=== PATIENT | female | born 1950 | race Caucasian/White ===

== ENCOUNTER → 2016-10-24 | Outpatient (CLI) | payer BC ==
[~2016-10-24] MED LIST: ASPI-231 PO; CLON0.1T PO; LISIPOW PO; METO-169 PO; SPIR25TA89 PO; SYNTHROID PO
[2016-10-24 08:03] LABS: Basophils # (auto) 0.1 uL; Basophils % (auto) 0.8 % (0.0-2.0); Eosinophils # (auto) 0.2 uL; Eosinophils % (auto) 2.9 % (0.0-7.0); Hematocrit 39.5 % (36.0-46.0); Lymphocytes # (auto) 1.4 uL; Lymphocytes % (auto) 19.8 % (10.0-50.0); Mean Corpuscular Hemoglobin 27.3 pg (28.0-32.0); Mean Corpuscular Hgb Conc. 32.9 g/dL (32.0-36.0); Mean Platelet Volume 8.3 fL (7.4-10.4); Monocytes # (auto) 0.5 uL; Monocytes % (auto) 7.3 % (0.0-12.0); Neutrophils # (auto) 4.7 uL; Neutrophils % (auto) 69.2 % (37.0-80.0); Platelet Count (auto) 263 10^3/uL (140-450); Red Cell Distribution Width 14.9 % (11.6-16.0); White Blood Cell 6.9 10^3/uL (4.4-10.8)
== END | disposition home or self-care (01) ==
LOC: LAB 07:12
PROVIDERS: ATTEND Internal Medicine
DX: C54.1 Malignant neoplasm of endometrium (principal)
CPT/HCPCS: 36415; 82378; 85025; 86304

== ENCOUNTER → 2016-11-22 | Outpatient (CLI) | payer BC ==
[2016-11-22 09:11] LABS: Basophils # (auto) 0 uL; Basophils % (auto) 0.6 % (0.0-2.0); DEFINITIVE VIEW TRANSMISSION; Eosinophils # (auto) 0.1 uL; Eosinophils % (auto) 2.1 % (0.0-7.0); Hematocrit 38.6 % (36.0-46.0); Hemoglobin 12.2 g/dL (12.2-16.2); Lymphocytes # (auto) 0.9 uL; Lymphocytes % (auto) 18.5 % (10.0-50.0); Mean Corpuscular Hemoglobin 26.9 pg (28.0-32.0); Mean Corpuscular Hgb Conc. 31.7 g/dL (32.0-36.0); Mean Platelet Volume 8.6 fL (7.4-10.4); Monocytes # (auto) 0.3 uL; Monocytes % (auto) 6.3 % (0.0-12.0); Neutrophils # (auto) 3.3 uL; Neutrophils % (auto) 72.5 % (37.0-80.0); Platelet Count (auto) 253 10^3/uL (140-450); Red Cell Distribution Width 16.3 % (11.6-16.0); White Blood Cell 4.6 10^3/uL (4.4-10.8)
[2016-11-22 14:11] LABS: Albumin 3.8 g/dL (3.4-5.0); Potassium 3.6 mmol/L (3.5-5.1)
[2016-11-22 14:15] LABS: BUN/Creatinine Ratio 29.3; Bilirubin, Total 0.6 mg/dL (0.2-1.0); Calcium 9.6 mg/dL (8.5-10.1); Magnesium 1.8 mg/dL (1.6-2.6); Total Protein 7.1 g/dL (6.4-8.2)
== END | disposition home or self-care (01) ==
LOC: LAB 07:21
PROVIDERS: ATTEND Internal Medicine
DX: Z51.11 Encounter for antineoplastic chemotherapy (principal); C54.1 Malignant neoplasm of endometrium
CPT/HCPCS: 36415; 80053; 83735; 85025

== ENCOUNTER → 2016-11-30 | Outpatient (CLI) | payer BC ==
[2016-11-30 08:31] LABS: Basophils # (auto) 0 uL; Basophils % (auto) 0.3 % (0.0-2.0); Eosinophils # (auto) 0.1 uL; Eosinophils % (auto) 3.1 % (0.0-7.0); Hematocrit 38.3 % (36.0-46.0); Hemoglobin 12.2 g/dL (12.2-16.2); Lymphocytes # (auto) 0.4 uL; Lymphocytes % (auto) 9.2 % (10.0-50.0); Mean Corpuscular Hemoglobin 27.5 pg (28.0-32.0); Mean Platelet Volume 8.1 fL (7.4-10.4); Monocytes # (auto) 0.3 uL; Monocytes % (auto) 6.9 % (0.0-12.0); Neutrophils # (auto) 3.8 uL; Neutrophils % (auto) 80.5 % (37.0-80.0); Platelet Count (auto) 207 10^3/uL (140-450); White Blood Cell 4.8 10^3/uL (4.4-10.8)
[2016-11-30 08:57] LABS: Albumin 3.4 g/dL (3.4-5.0); BUN/Creatinine Ratio 21.2; Bilirubin, Total 0.7 mg/dL (0.2-1.0); Calcium 9.2 mg/dL (8.5-10.1); Magnesium 1.7 mg/dL (1.6-2.6); Potassium 4.2 mmol/L (3.5-5.1); Total Protein 6.9 g/dL (6.4-8.2)
== END | disposition home or self-care (01) ==
LOC: LAB 08:17
PROVIDERS: ATTEND Internal Medicine
DX: C54.1 Malignant neoplasm of endometrium (principal); Z51.11 Encounter for antineoplastic chemotherapy
CPT/HCPCS: 36415; 80053; 83735; 85025

== ENCOUNTER → 2016-12-06 | Outpatient (CLI) | payer BC ==
[2016-12-06 08:29] LABS: Basophils # (auto) 0 uL; Eosinophils # (auto) 0.2 uL; Eosinophils % (auto) 5.5 % (0.0-7.0); Hematocrit 35.1 % (36.0-46.0); Hemoglobin 11.2 g/dL (12.2-16.2); Lymphocytes # (auto) 0.4 uL; Lymphocytes % (auto) 12.3 % (10.0-50.0); Mean Corpuscular Hemoglobin 27.6 pg (28.0-32.0); Mean Corpuscular Hgb Conc. 31.9 g/dL (32.0-36.0); Mean Corpuscular Volume 86.4 fL (80.0-100.0); Mean Platelet Volume 8.1 fL (7.4-10.4); Monocytes # (auto) 0.4 uL; Monocytes % (auto) 11.6 % (0.0-12.0); Neutrophils # (auto) 2.3 uL; Neutrophils % (auto) 69.6 % (37.0-80.0); Platelet Count (auto) 172 10^3/uL (140-450); Red Cell Distribution Width 15.9 % (11.6-16.0); White Blood Cell 3.3 10^3/uL (4.4-10.8)
[2016-12-06 09:05] LABS: Albumin 3.3 g/dL (3.4-5.0); BUN/Creatinine Ratio 33.9; Bilirubin, Total 0.4 mg/dL (0.2-1.0); Calcium 8.9 mg/dL (8.5-10.1); Magnesium 1.6 mg/dL (1.6-2.6); Total Protein 6.6 g/dL (6.4-8.2)
== END | disposition home or self-care (01) ==
LOC: LAB 08:13
PROVIDERS: ATTEND Internal Medicine
DX: Z51.11 Encounter for antineoplastic chemotherapy (principal); C54.1 Malignant neoplasm of endometrium
CPT/HCPCS: 36415; 80053; 83615; 83735; 85025

== ENCOUNTER → 2016-12-13 | Outpatient (CLI) | payer BC ==
[2016-12-13 16:00] LABS: Basophils # (auto) 0 uL; Basophils % (auto) 0.6 % (0.0-2.0); Eosinophils # (auto) 0.1 uL; Eosinophils % (auto) 2.2 % (0.0-7.0); Hematocrit 34.1 % (36.0-46.0); Hemoglobin 11.7 g/dL (12.2-16.2); Lymphocytes # (auto) 0.4 uL; Lymphocytes % (auto) 9.9 % (10.0-50.0); Mean Corpuscular Hemoglobin 28.8 pg (28.0-32.0); Mean Corpuscular Hgb Conc. 34.3 g/dL (32.0-36.0); Mean Corpuscular Volume 83.8 fL (80.0-100.0); Mean Platelet Volume 7.1 fL (7.4-10.4); Monocytes # (auto) 0.5 uL; Monocytes % (auto) 12.6 % (0.0-12.0); Neutrophils # (auto) 2.9 uL; Neutrophils % (auto) 74.7 % (37.0-80.0); Platelet Count (auto) 192 10^3/uL (140-450); Red Cell Distribution Width 15.7 % (11.6-16.0); White Blood Cell 3.8 10^3/uL (4.4-10.8)
[2016-12-13 16:24] LABS: Albumin 3.3 g/dL (3.4-5.0); BUN/Creatinine Ratio 26.1; Bilirubin, Total 0.5 mg/dL (0.2-1.0); Calcium 8.9 mg/dL (8.5-10.1); Magnesium 1.6 mg/dL (1.6-2.6); Potassium 4.5 mmol/L (3.5-5.1); Total Protein 6.8 g/dL (6.4-8.2)
== END | disposition home or self-care (01) ==
LOC: LAB 15:40
PROVIDERS: ATTEND Internal Medicine
DX: C54.1 Malignant neoplasm of endometrium (principal); Z51.11 Encounter for antineoplastic chemotherapy
CPT/HCPCS: 36415; 80053; 83615; 83735; 85025

== ENCOUNTER → 2016-12-21 | Outpatient (CLI) | payer BC ==
[2016-12-21 08:52] LABS: Basophils # (auto) 0 uL; Basophils % (auto) 0.1 % (0.0-2.0); Eosinophils # (auto) 0.1 uL; Hematocrit 33.1 % (36.0-46.0); Hemoglobin 11.5 g/dL (12.2-16.2); Lymphocytes # (auto) 0.2 uL; Lymphocytes % (auto) 5.7 % (10.0-50.0); Mean Corpuscular Hgb Conc. 34.7 g/dL (32.0-36.0); Mean Corpuscular Volume 83.6 fL (80.0-100.0); Mean Platelet Volume 7.6 fL (7.4-10.4); Monocytes # (auto) 0.3 uL; Neutrophils # (auto) 2.2 uL; Neutrophils % (auto) 80.2 % (37.0-80.0); Platelet Count (auto) 162 10^3/uL (140-450); Red Cell Distribution Width 16.5 % (11.6-16.0); White Blood Cell 2.7 10^3/uL (4.4-10.8)
[2016-12-21 09:18] LABS: Albumin 3.2 g/dL (3.4-5.0); Bilirubin, Total 0.6 mg/dL (0.2-1.0); Calcium 9.3 mg/dL (8.5-10.1); Magnesium 1.5 mg/dL (1.6-2.6); Potassium 4.3 mmol/L (3.5-5.1)
== END | disposition home or self-care (01) ==
LOC: LAB 08:23
PROVIDERS: ATTEND Internal Medicine
DX: C54.1 Malignant neoplasm of endometrium (principal); Z51.11 Encounter for antineoplastic chemotherapy
CPT/HCPCS: 36415; 80053; 83615; 83735; 85025

== ENCOUNTER → 2017-01-25 | Outpatient (CLI) | payer BC ==
[2017-01-25 08:31] LABS: Basophils # (auto) 0 uL; Basophils % (auto) 0.3 % (0.0-2.0); DEFINITIVE VIEW TRANSMISSION; Eosinophils # (auto) 0.2 uL; Eosinophils % (auto) 4.4 % (0.0-7.0); Hematocrit 27.4 % (36.0-46.0); Hemoglobin 9.4 g/dL (12.2-16.2); Lymphocytes # (auto) 0.3 uL; Lymphocytes % (auto) 6.3 % (10.0-50.0); Mean Corpuscular Hemoglobin 30.8 pg (28.0-32.0); Mean Corpuscular Hgb Conc. 34.1 g/dL (32.0-36.0); Mean Corpuscular Volume 90.4 fL (80.0-100.0); Mean Platelet Volume 8.7 fL (7.4-10.4); Monocytes # (auto) 0.4 uL; Monocytes % (auto) 9.6 % (0.0-12.0); Neutrophils # (auto) 3.5 uL; Neutrophils % (auto) 79.4 % (37.0-80.0); Platelet Count (auto) 181 10^3/uL (140-450); Red Cell Distribution Width 23.8 % (11.6-16.0); SUSPECT VIEW TRANSMISSION; White Blood Cell 4.4 10^3/uL (4.4-10.8)
[2017-01-25 08:52] LABS: Albumin 3.2 g/dL (3.4-5.0); BUN/Creatinine Ratio 23.9; Bilirubin, Total 0.4 mg/dL (0.2-1.0); Calcium 9.2 mg/dL (8.5-10.1); Potassium 4.1 mmol/L (3.5-5.1); Total Protein 6.7 g/dL (6.4-8.2)
== END | disposition home or self-care (01) ==
LOC: LAB 08:17
PROVIDERS: ATTEND Internal Medicine
DX: C54.1 Malignant neoplasm of endometrium (principal)
CPT/HCPCS: 36415; 80053; 83615; 85025; 86304

== ENCOUNTER → 2017-02-08 | Outpatient (CLI) | payer BC ==
[2017-02-08 15:19] LABS: Albumin 3.4 g/dL (3.4-5.0); BUN/Creatinine Ratio 22.8; Bilirubin, Total 0.7 mg/dL (0.2-1.0); Calcium 9.7 mg/dL (8.5-10.1); Potassium 4.5 mmol/L (3.5-5.1); Total Protein 7.1 g/dL (6.4-8.2)
[2017-02-08 15:30] LABS: DEFINITIVE VIEW TRANSMISSION; Hematocrit 29.7 % (36.0-46.0); Hemoglobin 10.2 g/dL (12.2-16.2); Mean Corpuscular Hgb Conc. 34.3 g/dL (32.0-36.0); Mean Corpuscular Volume 93.4 fL (80.0-100.0); Mean Platelet Volume 7.4 fL (7.4-10.4); Platelet Count (auto) 260 10^3/uL (140-450); Red Cell Distribution Width 23.4 % (11.6-16.0); SUSPECT VIEW TRANSMISSION
[2017-02-08 15:31] LABS: Metamyelocytes % 0; Promyelocytes % 0; Reactive Lymphocytes 0
[2017-02-08 18:43] LABS: Anisocytosis Moderate; Myelocytes % 0; Platelet Estimate Adequate
== END | disposition home or self-care (01) ==
LOC: LAB 14:47
PROVIDERS: ATTEND Internal Medicine
DX: Z51.11 Encounter for antineoplastic chemotherapy (principal); C54.1 Malignant neoplasm of endometrium
CPT/HCPCS: 36415; 80053; 83615; 83735; 85007; 85027

== ENCOUNTER → 2017-03-07 | Outpatient (CLI) | payer BC ==
[2017-03-07 07:42] LABS: Basophils # (auto) 0 uL; Basophils % (auto) 0.4 % (0.0-2.0); Eosinophils # (auto) 0 uL; Eosinophils % (auto) 1.2 % (0.0-7.0); Hematocrit 25.2 % (36.0-46.0); Hemoglobin 8.7 g/dL (12.2-16.2); Lymphocytes # (auto) 0.3 uL; Lymphocytes % (auto) 8.7 % (10.0-50.0); Mean Corpuscular Hgb Conc. 34.5 g/dL (32.0-36.0); Mean Corpuscular Volume 98.6 fL (80.0-100.0); Mean Platelet Volume 6.6 fL (7.4-10.4); Monocytes # (auto) 0.5 uL; Monocytes % (auto) 15.4 % (0.0-12.0); Neutrophils # (auto) 2.2 uL; Neutrophils % (auto) 74.3 % (37.0-80.0); Platelet Count (auto) 164 10^3/uL (140-450); Red Cell Distribution Width 18.2 % (11.6-16.0)
[2017-03-07 08:18] LABS: Albumin 3.5 g/dL (3.4-5.0); BUN/Creatinine Ratio 23.9; Bilirubin, Total 0.5 mg/dL (0.2-1.0); Calcium 9.3 mg/dL (8.5-10.1); Potassium 4.1 mmol/L (3.5-5.1)
== END | disposition home or self-care (01) ==
LOC: LAB 07:27
PROVIDERS: ATTEND Internal Medicine
DX: C54.1 Malignant neoplasm of endometrium (principal)
CPT/HCPCS: 36415; 80053; 83615; 85025

== ENCOUNTER → 2017-03-26 | Outpatient (CLI) | payer BC ==
[2017-03-26 11:38] LABS: Basophils # (auto) 0 uL; Basophils % (auto) 0.7 % (0.0-2.0); DEFINITIVE VIEW TRANSMISSION; Eosinophils # (auto) 0 uL; Eosinophils % (auto) 0.7 % (0.0-7.0); Hematocrit 26.9 % (36.0-46.0); Lymphocytes # (auto) 0.3 uL; Lymphocytes % (auto) 8.4 % (10.0-50.0); Mean Corpuscular Hemoglobin 34.4 pg (28.0-32.0); Mean Corpuscular Hgb Conc. 33.6 g/dL (32.0-36.0); Mean Corpuscular Volume 102.4 fL (80.0-100.0); Mean Platelet Volume 7.4 fL (7.4-10.4); Monocytes # (auto) 0.4 uL; Monocytes % (auto) 9.5 % (0.0-12.0); Neutrophils # (auto) 3.3 uL; Neutrophils % (auto) 80.7 % (37.0-80.0); Platelet Count (auto) 218 10^3/uL (140-450); Red Cell Distribution Width 15.8 % (11.6-16.0); White Blood Cell 4.1 10^3/uL (4.4-10.8)
[2017-03-26 12:05] LABS: Albumin 3.3 g/dL (3.4-5.0); BUN/Creatinine Ratio 23.1; Calcium 9.5 mg/dL (8.5-10.1); Potassium 4.4 mmol/L (3.5-5.1)
[2017-03-26 12:08] LABS: Bilirubin, Total 0.4 mg/dL (0.2-1.0)
== END | disposition home or self-care (01) ==
LOC: LAB 10:36
PROVIDERS: ATTEND Internal Medicine
DX: C54.1 Malignant neoplasm of endometrium (principal)
CPT/HCPCS: 36415; 80053; 83615; 85025; 86304

== ENCOUNTER → 2017-04-23 | Outpatient (CLI) | payer BC ==
[2017-04-23 10:59] LABS: Basophils # (auto) 0 uL; Basophils % (auto) 0.7 % (0.0-2.0); CONDITION Y; Eosinophils # (auto) 0.1 uL; Eosinophils % (auto) 3.3 % (0.0-7.0); Hematocrit 27.4 % (36.0-46.0); Hemoglobin 9.5 g/dL (12.2-16.2); Lymphocytes # (auto) 0.2 uL; Lymphocytes % (auto) 8.5 % (10.0-50.0); Mean Corpuscular Hemoglobin 34.3 pg (28.0-32.0); Mean Corpuscular Hgb Conc. 34.8 g/dL (32.0-36.0); Mean Corpuscular Volume 98.7 fL (80.0-100.0); Mean Platelet Volume 7.1 fL (7.4-10.4); Monocytes # (auto) 0.3 uL; Monocytes % (auto) 9.2 % (0.0-12.0); Neutrophils # (auto) 2.2 uL; Neutrophils % (auto) 78.3 % (37.0-80.0); Platelet Count (auto) 137 10^3/uL (140-450); Red Cell Distribution Width 14.3 % (11.6-16.0); White Blood Cell 2.8 10^3/uL (4.4-10.8)
[2017-04-23 11:27] LABS: Albumin 3.3 g/dL (3.4-5.0); BUN/Creatinine Ratio 24.1; Bilirubin, Total 0.4 mg/dL (0.2-1.0); Calcium 9.7 mg/dL (8.5-10.1); Potassium 4.5 mmol/L (3.5-5.1); Total Protein 6.7 g/dL (6.4-8.2)
== END | disposition home or self-care (01) ==
LOC: LAB 09:44
PROVIDERS: ATTEND Internal Medicine
DX: C54.1 Malignant neoplasm of endometrium (principal)
CPT/HCPCS: 36415; 80053; 83615; 85025

== ENCOUNTER → 2017-07-30 | Outpatient (CLI) | payer BC ==
[2017-07-30 07:45] LABS: Basophils # (auto) 0 uL; Basophils % (auto) 0.6 % (0.0-2.0); Eosinophils # (auto) 0.1 uL; Eosinophils % (auto) 3.2 % (0.0-7.0); Hematocrit 32.2 % (36.0-46.0); Lymphocytes # (auto) 0.6 uL; Lymphocytes % (auto) 15.4 % (10.0-50.0); Mean Corpuscular Hemoglobin 31.8 pg (28.0-32.0); Mean Corpuscular Volume 93.4 fL (80.0-100.0); Mean Platelet Volume 6.9 fL (6.9-10.8); Monocytes # (auto) 0.4 uL; Monocytes % (auto) 11.2 % (0.0-12.0); Neutrophils # (auto) 2.7 uL; Neutrophils % (auto) 69.6 % (37.0-80.0); Platelet Count (auto) 169 10^3/uL (140-450); Red Cell Distribution Width 13.1 % (11.8-14.3); White Blood Cell 3.9 10^3/uL (4.4-10.8)
[2017-07-30 08:02] LABS: Albumin 3.6 g/dL (3.4-5.0); BUN/Creatinine Ratio 29.3; Bilirubin, Total 0.4 mg/dL (0.2-1.0); Calcium 9.7 mg/dL (8.5-10.1); Potassium 4.5 mmol/L (3.5-5.1); Total Protein 7.3 g/dL (6.4-8.2)
== END | disposition home or self-care (01) ==
LOC: LAB 06:45
PROVIDERS: ATTEND Internal Medicine
DX: C54.1 Malignant neoplasm of endometrium (principal); I10 Essential (primary) hypertension; E11.9 Type 2 diabetes mellitus without complications
CPT/HCPCS: 36415; 80053; 83615; 85025; 86304

== ENCOUNTER → 2017-10-30 | Outpatient (CLI) | payer BC ==
[2017-10-30 16:33] LABS: Basophils # (auto) 0 uL; Basophils % (auto) 0.8 % (0.0-2.0); Eosinophils # (auto) 0.1 uL; Eosinophils % (auto) 3.3 % (0.0-7.0); Hematocrit 33.6 % (36.0-46.0); Hemoglobin 11.6 g/dL (12.2-16.2); Lymphocytes # (auto) 0.4 uL; Lymphocytes % (auto) 10.1 % (10.0-50.0); Mean Corpuscular Hemoglobin 31.2 pg (28.0-32.0); Mean Corpuscular Hgb Conc. 34.7 g/dL (32.0-36.0); Mean Corpuscular Volume 89.9 fL (80.0-100.0); Monocytes # (auto) 0.4 uL; Neutrophils # (auto) 3.1 uL; Neutrophils % (auto) 76.8 % (37.0-80.0); Nucleated Red Blood Cells % 0.1 %; Platelet Count (auto) 193 10^3/uL (140-450); Red Blood Cells 3.73 10^6/uL (4.0-5.20); Red Cell Distribution Width 13.9 % (11.8-14.3)
[2017-10-30 17:27] LABS: Potassium 4.2 mmol/L (3.5-5.1)
[2017-10-30 17:28] LABS: Albumin 3.5 g/dL (3.4-5.0); BUN/Creatinine Ratio 25.3; Bilirubin, Total 0.5 mg/dL (0.2-1.0); Calcium 9.6 mg/dL (8.5-10.1); Total Protein 7.4 g/dL (6.4-8.2)
== END | disposition home or self-care (01) ==
LOC: LAB 16:17
PROVIDERS: ATTEND Internal Medicine
DX: C54.1 Malignant neoplasm of endometrium (principal); I10 Essential (primary) hypertension
CPT/HCPCS: 36415; 80053; 85025; 86304

== ENCOUNTER → 2018-04-25 | Outpatient (CLI) | payer BC ==
[2018-04-25 14:18] LABS: Basophils # (auto) 0 uL; Basophils % (auto) 0.9 % (0.0-2.0); Eosinophils # (auto) 0.1 uL; Eosinophils % (auto) 3.1 % (0.0-7.0); Hematocrit 32.2 % (36.0-46.0); Hemoglobin 10.8 g/dL (12.2-16.2); Lymphocytes # (auto) 0.4 uL; Lymphocytes % (auto) 8.7 % (10.0-50.0); Mean Corpuscular Hemoglobin 30.1 pg (28.0-32.0); Mean Corpuscular Hgb Conc. 33.5 g/dL (32.0-36.0); Mean Corpuscular Volume 89.6 fL (80.0-100.0); Monocytes # (auto) 0.4 uL; Neutrophils # (auto) 3.8 uL; Neutrophils % (auto) 79.3 % (37.0-80.0); Nucleated Red Blood Cells % 0.1 %; Platelet Count (auto) 200 10^3/uL (140-450); Red Blood Cells 3.59 10^6/uL (4.0-5.20); Red Cell Distribution Width 15.1 % (11.8-14.3); White Blood Cell 4.8 10^3/uL (4.4-10.8)
[2018-04-25 18:17] LABS: INR 0.9 (0.9-1.15); Partial Thromboplastin Time 26.4 sec (23.78-33.04); Prothrombin Time 9.7 sec (9.27-12.13)
== END | disposition home or self-care (01) ==
LOC: LAB 13:51
PROVIDERS: ATTEND Family Medicine
DX: I10 Essential (primary) hypertension (principal); R59.1 Generalized enlarged lymph nodes
CPT/HCPCS: 36415; 85025; 85610; 85730

== ENCOUNTER → 2018-08-14 | Outpatient (CLI) | payer BC ==
[~2018-08-14] MED LIST changes: +SPIR25TA8 PO; -SPIR25TA89 PO
[2018-08-14 10:41] LABS: Basophils # (auto) 0 uL; Basophils % (auto) 0.7 % (0.0-2.0); Eosinophils # (auto) 0.2 uL; Eosinophils % (auto) 2.8 % (0.0-7.0); Hemoglobin 8.6 g/dL (12.2-16.2); Lymphocytes # (auto) 0.5 uL; Lymphocytes % (auto) 8.6 % (10.0-50.0); Mean Corpuscular Hemoglobin 29.6 pg (28.0-32.0); Mean Corpuscular Hgb Conc. 33.1 g/dL (32.0-36.0); Mean Corpuscular Volume 89.4 fL (80.0-100.0); Monocytes # (auto) 0.5 uL; Monocytes % (auto) 8.2 % (0.0-12.0); Neutrophils # (auto) 4.6 uL; Neutrophils % (auto) 79.7 % (37.0-80.0); Platelet Count (auto) 237 10^3/uL (140-450); Red Blood Cells 2.91 10^6/uL (4.0-5.20); Red Cell Distribution Width 15.2 % (11.8-14.3); White Blood Cell 5.7 10^3/uL (4.4-10.8)
[2018-08-14 11:01] LABS: Albumin 3.1 g/dL (3.4-5.0); Calcium 9.5 mg/dL (8.5-10.1); Potassium 4.5 mmol/L (3.5-5.1)
[2018-08-14 11:07] LABS: Bilirubin, Total 0.3 mg/dL (0.2-1.0); Total Protein 6.9 g/dL (6.4-8.2)
== END | disposition home or self-care (01) ==
LOC: LAB 10:01
PROVIDERS: ATTEND Internal Medicine
DX: C54.1 Malignant neoplasm of endometrium (principal)
CPT/HCPCS: 36415; 80053; 83615; 85025; 86304

== ENCOUNTER → 2018-08-16 | Emergency (ER) | payer BC | END | disposition left against medical advice (07) | LOC: ER 02:09 | DX: I10 Essential (primary) hypertension (principal); Z53.21 Procedure and treatment not carried out due to patient leaving prior to being seen by health care provider ==

== ENCOUNTER → 2018-09-19 | Outpatient (CLI) | payer BC ==
[2018-09-19 13:37] LABS: Basophils # (auto) 0 uL; Eosinophils # (auto) 0.1 uL; Hemoglobin 7.4 g/dL (12.2-16.2); Lymphocytes # (auto) 0.3 uL; Mean Corpuscular Volume 87.9 fL (80.0-100.0); Monocytes # (auto) 0.4 uL; Nucleated Red Blood Cells % 0.1 %
[2018-09-19 13:40] LABS: Basophils % (auto) 0.4 % (0.0-2.0); Eosinophils % (auto) 1.7 % (0.0-7.0); Hematocrit 23.3 % (36.0-46.0); Lymphocytes % (auto) 5.1 % (10.0-50.0); Mean Corpuscular Hemoglobin 28.1 pg (28.0-32.0); Mean Corpuscular Hgb Conc. 31.9 g/dL (32.0-36.0); Monocytes % (auto) 6.4 % (0.0-12.0); Neutrophils % (auto) 86.4 % (37.0-80.0); Platelet Count (auto) 298 10^3/uL (140-450); Red Blood Cells 2.65 10^6/uL (4.0-5.20); Red Cell Distribution Width 16.5 % (11.8-14.3); White Blood Cell 5.8 10^3/uL (4.4-10.8)
[2018-09-19 14:18] LABS: Potassium 4.6 mmol/L (3.5-5.1)
[2018-09-19 14:32] LABS: BUN/Creatinine Ratio 28.4; Bilirubin, Total 0.3 mg/dL (0.2-1.0); Calcium 9.4 mg/dL (8.5-10.1); Total Protein 6.7 g/dL (6.4-8.2)
== END | disposition home or self-care (01) ==
LOC: LAB 11:37
PROVIDERS: ATTEND Internal Medicine
DX: C55 Malignant neoplasm of uterus, part unspecified (principal)
CPT/HCPCS: 36415; 80053; 83615; 85025; 86304

== ENCOUNTER 2018-10-06 19:11 | Inpatient (IN) | payer BC, MEDICARE ==
[~2018-10-06] VITALS: Ht 170.2 cm; Wt 80.4 kg
[2018-10-06 20:07] LABS: Alanine Aminotransferase 17 U/L (13-56); Albumin 2.8 g/dL (3.4-5.0); Anion Gap 11 (5-15); Aspartate Aminotransferase 12 U/L (15-37); BUN/Creatinine Ratio 31.3; Blood Urea Nitrogen 50 mg/dL (7-18); Calcium 8.8 mg/dL (8.5-10.1); Carbon Dioxide 20 mmol/L (21-32); Chloride 106 mmol/L (98-107); GFR African American 41 mL/min; GFR Non-African American 34 mL/min; Glucose 153 mg/dL (74-106); Potassium 4.6 mmol/L (3.5-5.1); Sodium 137 mmol/L (136-145)
[2018-10-06 20:12] LABS: Alkaline Phosphatase 68 U/L (45-117); Bilirubin, Total 0.3 mg/dL (0.2-1.0); Total Protein 6.4 g/dL (6.4-8.2)
[2018-10-06 20:44] LABS: Basophils # (auto) 0 uL; Eosinophils # (auto) 0.1 uL; Lymphocytes # (auto) 0.3 uL; Monocytes # (auto) 0.4 uL; Monocytes % (auto) 5.6 % (0.0-12.0); Neutrophils # (auto) 6.2 uL; Nucleated Red Blood Cells % 0.1 %
[2018-10-06 20:46] LABS: Basophils % (auto) 0.6 % (0.0-2.0); Eosinophils % (auto) 1.5 % (0.0-7.0); Hematocrit 16.4 % (36.0-46.0); Lymphocytes % (auto) 3.9 % (10.0-50.0); Mean Corpuscular Hemoglobin 27.8 pg (28.0-32.0); Mean Corpuscular Hgb Conc. 31.5 g/dL (32.0-36.0); Mean Corpuscular Volume 88.2 fL (80.0-100.0); Neutrophils % (auto) 88.4 % (37.0-80.0); Platelet Count (auto) 280 10^3/uL (140-450); Red Blood Cells 1.86 10^6/uL (4.0-5.20); Red Cell Distribution Width 17.9 % (11.8-14.3); White Blood Cell 7.1 10^3/uL (4.4-10.8)
[2018-10-06 20:48] LABS: Hemoglobin 5.2 g/dL (12.2-16.2)
[2018-10-06] MEDS ORDERED: PANTOPRAZOLE 40 MG/10 ML VIAL IV ONE (21:00)
[2018-10-06] MEDS ORDERED: TEMAZEPAM 15 MG CAP PO PRN (22:15)
[2018-10-06] MEDS ORDERED: ONDANSETRON HCL 4 MG/2 ML VIAL IV PRN (22:15)
[2018-10-06] MEDS ORDERED: NITROGLYCERIN 0.4 MG SL TAB SL PRN (22:15)
[2018-10-06] MEDS ORDERED: HYDROcodone-ACET 5/325MG TAB PO PRN (22:15)
[2018-10-06] MEDS ORDERED: ACETAMINOPHEN 325 MG TAB PO PRN (22:15)
[2018-10-06] MEDS: SODIUM CHLORIDE 0.9% 1,000 ML IV SCH (22:45)
[2018-10-06 23:19] LABS: Urine Bacteria MANY /hpf (None Seen); Urine Blood 2+ /uL (Negative); Urine Hyaline Cast FEW /lpf (0 - 2); Urine Specific Gravity 1.013 (1.001-1.035); Urine WBC 10 /hpf (0 - 5)
[2018-10-06 23:26] VITALS: BP 116/53
[2018-10-06 23:30] VITALS: BP 116/57
[2018-10-07] VITALS (23 sets, daily range): BP systolic 97–153; BP diastolic 50–77
[2018-10-07] MEDS ORDERED: AMLO5TAB13 PO (01:28)
[2018-10-07] MEDS ORDERED: LEV100T PO (01:28)
[2018-10-07] MEDS ORDERED: CHLO25TA22 PO (01:28)
[2018-10-07] MEDS ORDERED: LISI10TA6 PO (01:28)
[2018-10-07] MEDS ORDERED: CLON0.1T PO (04:55)
[2018-10-07] MEDS ORDERED: cefTRIAXone 1GM/50ML D5W 50 ML IV SCH (06:00)
[2018-10-07] MEDS: LEVOTHYROXINE SODIUM 50 MCG TAB PO SCH (06:46)
[2018-10-07] MEDS ORDERED: LEVOTHYROXINE PO SCH ×2 (07:00)
[2018-10-07 09:29] LABS: Basophils # (auto) 0 uL; Eosinophils # (auto) 0.1 uL; Lymphocytes # (auto) 0.4 uL; Nucleated Red Blood Cells % 0.1 %
[2018-10-07 09:32] LABS: Basophils % (auto) 0.4 % (0.0-2.0); Eosinophils % (auto) 1.8 % (0.0-7.0); Hematocrit 22.9 % (36.0-46.0); Hemoglobin 7.3 g/dL (12.2-16.2); Lymphocytes % (auto) 6.7 % (10.0-50.0); Mean Corpuscular Hemoglobin 27.4 pg (28.0-32.0); Mean Corpuscular Volume 85.6 fL (80.0-100.0); Monocytes # (auto) 0.4 uL; Monocytes % (auto) 6.8 % (0.0-12.0); Neutrophils # (auto) 4.4 uL; Neutrophils % (auto) 84.3 % (37.0-80.0); Platelet Count (auto) 214 10^3/uL (140-450); Red Blood Cells 2.67 10^6/uL (4.0-5.20); Red Cell Distribution Width 17.6 % (11.8-14.3); White Blood Cell 5.2 10^3/uL (4.4-10.8)
[2018-10-07 09:40] LABS: Albumin 2.5 g/dL (3.4-5.0); BUN/Creatinine Ratio 29.1; Calcium 8.4 mg/dL (8.5-10.1)
[2018-10-07 09:43] LABS: Bilirubin, Total 0.8 mg/dL (0.2-1.0); Total Protein 5.8 g/dL (6.4-8.2)
[2018-10-07] MEDS: cloNIDine HCL 0.1 MG TAB PO SCH ×2 (10:00→22:00)
[2018-10-07] MEDS: cefTRIAXone 1GM/50ML D5W 50 ML IV SCH (11:52)
[2018-10-07] MEDS: METOPROLOL SUCCINATE XL 50 MG TAB PO SCH (11:53)
[2018-10-07] MEDS: PANTOPRAZOLE 40 MG/10 ML VIAL IV SCH ×2 (11:53→22:03)
[2018-10-07] MEDS: SODIUM CHLORIDE 0.9% 1,000 ML IV SCH (11:54)
[2018-10-07] MEDS: LISINOPRIL 20 MG TAB PO SCH (11:54)
[2018-10-07 14:08] LABS: INR 0.91 (0.9-1.15); Prothrombin Time 9.8 sec (9.27-12.13)
[2018-10-07] MEDS ORDERED: GOLYTELY 4L KIT PO ONE (17:30)
[2018-10-07 23:11] LABS: Basophils # (auto) 0 uL; Basophils % (auto) 0.4 % (0.0-2.0); Eosinophils # (auto) 0.1 uL; Eosinophils % (auto) 1.8 % (0.0-7.0); Hematocrit 27.5 % (36.0-46.0); Lymphocytes # (auto) 0.4 uL; Lymphocytes % (auto) 6.6 % (10.0-50.0); Mean Corpuscular Hemoglobin 28.5 pg (28.0-32.0); Mean Corpuscular Hgb Conc. 32.8 g/dL (32.0-36.0); Mean Corpuscular Volume 86.8 fL (80.0-100.0); Monocytes # (auto) 0.4 uL; Monocytes % (auto) 6.7 % (0.0-12.0); Neutrophils # (auto) 4.9 uL; Neutrophils % (auto) 84.5 % (37.0-80.0); Nucleated Red Blood Cells % 0.4 %; Platelet Count (auto) 227 10^3/uL (140-450); Red Blood Cells 3.16 10^6/uL (4.0-5.20); Red Cell Distribution Width 17.4 % (11.8-14.3); White Blood Cell 5.8 10^3/uL (4.4-10.8)
[2018-10-08] MEDS: SODIUM CHLORIDE 0.9% 1,000 ML IV SCH ×2 (00:55→14:15)
[2018-10-08 05:18] VITALS: BP 149/72
[2018-10-08 05:42] LABS: Basophils # (auto) 0 uL; Basophils % (auto) 0.5 % (0.0-2.0); Eosinophils # (auto) 0.1 uL; Eosinophils % (auto) 1.6 % (0.0-7.0); Hematocrit 28.3 % (36.0-46.0); Hemoglobin 9.2 g/dL (12.2-16.2); Lymphocytes # (auto) 0.3 uL; Lymphocytes % (auto) 5.1 % (10.0-50.0); Mean Corpuscular Hemoglobin 28.1 pg (28.0-32.0); Mean Corpuscular Hgb Conc. 32.5 g/dL (32.0-36.0); Mean Corpuscular Volume 86.6 fL (80.0-100.0); Monocytes # (auto) 0.3 uL; Neutrophils # (auto) 4.9 uL; Neutrophils % (auto) 86.8 % (37.0-80.0); Platelet Count (auto) 239 10^3/uL (140-450); Red Blood Cells 3.27 10^6/uL (4.0-5.20); White Blood Cell 5.6 10^3/uL (4.4-10.8)
[2018-10-08 06:02] LABS: % Iron Saturation 9.6 % (15-50)
[2018-10-08 06:12] LABS: Folate (Folic Acid) 8.25 ng/mL (5.38-24)
[2018-10-08 06:24] LABS: BUN/Creatinine Ratio 16.5; Calcium 8.5 mg/dL (8.5-10.1); Potassium 4.2 mmol/L (3.5-5.1)
[2018-10-08] MEDS: LEVOTHYROXINE SODIUM 50 MCG TAB PO SCH (06:36)
[2018-10-08 08:45] VITALS: BP 141/55
[2018-10-08] MEDS ORDERED: SODIUM CHLORIDE LOCK 10 ML ONE (09:39)
[2018-10-08] MEDS ORDERED: LIDOCAINE VISCOUS 2% 15ML UD ONE (09:39)
[2018-10-08] MEDS ORDERED: FLUMAZENIL 0.1 MG/ML INJ 10ML MDV IV ONE (09:39)
[2018-10-08] MEDS ORDERED: NALOXONE HCL 0.4 MG/ML VIAL ONE (09:39)
[2018-10-08] MEDS ORDERED: diphenhdrAMINE HCL 50 MG/1 ML VL ONE (09:40)
[2018-10-08] MEDS: METOPROLOL SUCCINATE XL 50 MG TAB PO SCH (10:00)
[2018-10-08] MEDS: cloNIDine HCL 0.1 MG TAB PO SCH ×2 (10:00→22:00)
[2018-10-08] MEDS: LISINOPRIL 20 MG TAB PO SCH (10:00)
[2018-10-08] MEDS: cefTRIAXone 1GM/50ML D5W 50 ML IV SCH (10:04)
[2018-10-08] MEDS: PANTOPRAZOLE 40 MG/10 ML VIAL IV SCH (10:08)
[2018-10-08] MEDS: fentaNYL CITRATE 100 MCG/2 ML VL ONE ×3 (11:38→11:50)
[2018-10-08] MEDS: MIDAZOLAM HCL 5 MG/ML-1ML VIAL ONE ×3 (11:38→11:50)
[2018-10-08] MEDS: SODIUM FERR GLUC 62.5MG/5ML 125 MG in SODIUM CHL 0.9% 100 ML IV SCH (12:13)
[2018-10-08 13:00] VITALS: BP 114/50
[2018-10-08 16:55] VITALS: BP 114/78
[2018-10-08 22:00] VITALS: BP 133/63
[2018-10-09] MEDS: SODIUM CHLORIDE 0.9% 1,000 ML IV SCH (02:36)
[2018-10-09 05:00] VITALS: BP 121/56
[2018-10-09 05:44] LABS: Hematocrit 25.2 % (36.0-46.0); Hemoglobin 8.3 g/dL (12.2-16.2)
[2018-10-09] MEDS: LEVOTHYROXINE SODIUM 50 MCG TAB PO SCH (06:37)
[2018-10-09 09:00] VITALS: BP 127/46
[2018-10-09] MEDS: cloNIDine HCL 0.1 MG TAB PO SCH (09:18)
[2018-10-09] MEDS: LISINOPRIL 20 MG TAB PO SCH (09:19)
[2018-10-09] MEDS: METOPROLOL SUCCINATE XL 50 MG TAB PO SCH (09:19)
[2018-10-09] MEDS: cefTRIAXone 1GM/50ML D5W 50 ML IV SCH (09:26)
[2018-10-09] MEDS: SODIUM FERR GLUC 62.5MG/5ML 125 MG in SODIUM CHL 0.9% 100 ML IV SCH (12:03)
[2018-10-09 12:45] LABS: Hematocrit 27.2 % (36.0-46.0); Hemoglobin 8.8 g/dL (12.2-16.2)
[2018-10-09 13:00] VITALS: BP 153/66
[2018-10-09 13:23] VITALS: BP 127/46
== END 2018-10-09 14:45 | disposition home or self-care (01) | DRG 377 ==
LOC: EEVIPCON 19:11 → ER 19:11 → TELE 22:18 → TELE-CENTR 23:10
PROVIDERS: ADMIT Nurse Practitioner; ATTEND Internal Medicine
PROC: 30233N1 Transfusion of Nonautologous Red Blood Cells into Peripheral Vein, Percutaneous Approach (ICD-10-PCS; principal; 2018-10-07)
PROC: 0DJD8ZZ Inspection of Lower Intestinal Tract, Via Natural or Artificial Opening Endoscopic (ICD-10-PCS; 2018-10-08)
PROC: 0DJ08ZZ Inspection of Upper Intestinal Tract, Via Natural or Artificial Opening Endoscopic (ICD-10-PCS; 2018-10-08 11:38)
DX: K92.1 Melena (principal); N17.0 Acute kidney failure with tubular necrosis; D62 Acute posthemorrhagic anemia; N13.30 Unspecified hydronephrosis; E11.22 Type 2 diabetes mellitus with diabetic chronic kidney disease; E78.5 Hyperlipidemia, unspecified; E89.0 Postprocedural hypothyroidism; C54.1 Malignant neoplasm of endometrium; K62.89 Other specified diseases of anus and rectum; I12.9 Hypertensive chronic kidney disease with stage 1 through stage 4 chronic kidney disease, or unspecified chronic kidney disease; N18.3 Chronic kidney disease, stage 3 (moderate); Z80.3 Family history of malignant neoplasm of breast; Z80.41 Family history of malignant neoplasm of ovary; Z82.49 Family history of ischemic heart disease and other diseases of the circulatory system; Z83.3 Family history of diabetes mellitus; Z90.710 Acquired absence of both cervix and uterus; Z90.49 Acquired absence of other specified parts of digestive tract; Z79.82 Long term (current) use of aspirin; Z79.899 Other long term (current) drug therapy
CPT/HCPCS: 36415; 71045; 74176; 80048; 80053; 81001; 82607; 82728; 82746; 83010; 83540; 83550; 83605; 83735; 83880; 84443; 84484; 85014; 85018; 85025; 85610; 86850; 86880; 86900; 86901; 86920; 87040; 87086; 93005; 94761; 96374; C9113; G0378; J0696; J2250

== ENCOUNTER → 2018-10-18 | Outpatient (CLI) | payer BC, MEDICARE ==
[~2018-10-18] MED LIST changes: +AMLO5TAB13 PO; -ASPI-231 PO; +CHLO25TA22 PO; +LEV100T PO; +LISI10TA6 PO; -LISIPOW PO; -SYNTHROID PO
[2018-10-18 12:48] LABS: Basophils # (auto) 0 uL; Eosinophils # (auto) 0.1 uL; Hemoglobin 8.1 g/dL (12.2-16.2); Monocytes # (auto) 0.4 uL; Neutrophils # (auto) 5.7 uL
[2018-10-18 12:49] LABS: Basophils % (auto) 0.5 % (0.0-2.0); Eosinophils % (auto) 1.2 % (0.0-7.0); Lymphocytes # (auto) 0.4 uL; Lymphocytes % (auto) 5.6 % (10.0-50.0); Mean Corpuscular Hemoglobin 28.5 pg (28.0-32.0); Mean Corpuscular Hgb Conc. 32.4 g/dL (32.0-36.0); Monocytes % (auto) 6.7 % (0.0-12.0); Platelet Count (auto) 318 10^3/uL (140-450); Red Blood Cells 2.84 10^6/uL (4.0-5.20); Red Cell Distribution Width 17.8 % (11.8-14.3); White Blood Cell 6.6 10^3/uL (4.4-10.8)
== END | disposition home or self-care (01) ==
LOC: LAB 12:18
PROVIDERS: ATTEND Internal Medicine
DX: K92.2 Gastrointestinal hemorrhage, unspecified (principal); D64.9 Anemia, unspecified
CPT/HCPCS: 36415; 82270; 85025

== ENCOUNTER → 2018-10-29 | Outpatient (CLI) | payer BC, MEDICARE ==
[2018-10-29 12:06] LABS: Potassium 4.7 mmol/L (3.5-5.1)
[2018-10-29 12:14] LABS: BUN/Creatinine Ratio 26.6; Calcium 9.6 mg/dL (8.5-10.1)
== END | disposition home or self-care (01) ==
LOC: LAB 10:31
PROVIDERS: ATTEND Internal Medicine
DX: N17.9 Acute kidney failure, unspecified (principal); I10 Essential (primary) hypertension
CPT/HCPCS: 36415; 80048

== ENCOUNTER 2018-11-08 10:20 | Inpatient (IN) | payer BC, MEDICARE ==
[~2018-11-08] VITALS: Ht 170.2 cm; Wt 78.0 kg
[2018-11-08] VITALS (7 sets, daily range): BP systolic 99–117; BP diastolic 49–76
[2018-11-08] MEDS ORDERED: SODIUM CHLORIDE 0.9% 500 ML IV ONE (10:38)
[2018-11-08 11:16] LABS: Basophils # (auto) 0 uL; Eosinophils # (auto) 0.1 uL; Lymphocytes # (auto) 0.3 uL; Monocytes # (auto) 0.4 uL; Neutrophils # (auto) 4.4 uL; Nucleated Red Blood Cells % 0.1 %
[2018-11-08 11:18] LABS: Basophils % (auto) 0.3 % (0.0-2.0); Hematocrit 17.5 % (36.0-46.0); Lymphocytes % (auto) 5.7 % (10.0-50.0); Mean Corpuscular Hemoglobin 28.5 pg (28.0-32.0); Mean Corpuscular Hgb Conc. 32.7 g/dL (32.0-36.0); Mean Corpuscular Volume 87.2 fL (80.0-100.0); Monocytes % (auto) 7.4 % (0.0-12.0); Neutrophils % (auto) 84.6 % (37.0-80.0); Platelet Count (auto) 237 10^3/uL (140-450); Red Cell Distribution Width 18.1 % (11.8-14.3); White Blood Cell 5.2 10^3/uL (4.4-10.8)
[2018-11-08 11:23] LABS: Hemoglobin 5.7 g/dL (12.2-16.2)
[2018-11-08 11:41] LABS: Albumin 2.8 g/dL (3.4-5.0); Calcium 8.8 mg/dL (8.5-10.1); Potassium 5.1 mmol/L (3.5-5.1)
[2018-11-08 11:45] LABS: BUN/Creatinine Ratio 31.8; Bilirubin, Total 0.3 mg/dL (0.2-1.0)
[2018-11-08] MEDS ORDERED: HYDROcodone-ACET 5/325MG TAB PO PRN (11:45)
[2018-11-08] MEDS ORDERED: PROMETHAZINE HCL 25 MG/ML 1ML IV PRN (11:45)
[2018-11-08] MEDS ORDERED: LORazepam 0.5 MG TAB PO PRN (11:45)
[2018-11-08] MEDS ORDERED: TEMAZEPAM 15 MG CAP PO PRN (11:45)
[2018-11-08] MEDS ORDERED: ACETAMINOPHEN 500 MG TAB PO PRN (11:45)
[2018-11-08] MEDS ORDERED: LACTULOSE 20Gm/30ML SOLN PO PRN (11:45)
[2018-11-08] MEDS ORDERED: NITROGLYCERIN 0.4 MG SL TAB SL PRN (11:45)
[2018-11-08] MEDS ORDERED: cloNIDine HCL 0.1 MG TAB PO SCH (11:45)
[2018-11-08] MEDS ORDERED: MORPHINE SULFATE 10 MG/ML INJ 1ML SDV IV PRN ×2 (11:45)
--- NOTE | 2018-11-08 13:20 | NUR ---
Telemetry admit from [facility] FOX admitted to Telemetry unit after verbal report received. Patient oriented to Yennifer Balbuena, primary RN, unit, room, bed, and unit policies regarding patient care and visiting hours. Patient is awake, alert and oriented X4. No signs or symptoms of distress, shortness of breath or pain. Patient now on continuous telemetry monitoring, tele box #12 and telemetry reading on arrival to unit is sinus rhythm @ 71 bpm. Iv to left antecubital, 18 gauge, patent and saline locked. Patient placed on bedside oxygen, weighed by bedscale and encouraged to call if they need something. All questions and concerns addressed, patient verbalized understanding. Bed locked, in lowest position, call light within reach, will continue to monitor Q 1 hour and PRN.
--- NOTE | 2018-11-08 14:00 | NUR ---
PRBC 1 unit of PRBC's started.
[2018-11-08] MEDS: SODIUM CHLORIDE 0.9% 1,000 ML IV SCH (16:07)
--- NOTE | 2018-11-08 17:24 | NUR ---
PRBC'S 1 unit of PRBC's completed, no reactions noted.
[2018-11-08 19:16] LABS: Urine Bacteria NONE SEEN /hpf (None Seen); Urine Blood Negative /uL (Negative); Urine Specific Gravity 1.005 (1.001-1.035); Urine WBC 1 /hpf (0 - 5)
--- NOTE | 2018-11-08 19:20 | NUR ---
Opening Shift Note Received report from klaudia Davis RN. Assumed care of patient, awake and alert. No S/S of distress/SOB or pain. Instructed on POC and to call for assist PRN, will continue to monitor for changes Q1hr and PRN. Bed placed in lowest position, call light within reach.
--- NOTE | 2018-11-08 19:24 | NUR ---
Care endorsed to MARLENA Schumacher, night nurse.
--- NOTE | 2018-11-08 21:00 | NUR ---
Stool sample sent to lab.
[2018-11-08 21:27] LABS: Hemoglobin 7.9 g/dL (12.2-16.2)
[2018-11-08 21:30] LABS: Hematocrit 23.3 % (36.0-46.0)
[2018-11-08] MEDS ORDERED: PANTOPRAZOLE 40 MG TAB PO SCH (22:00)
[2018-11-08] MEDS: CHLORTHALIDONE 25 MG PO SCH (22:00)
[2018-11-09 00:48] LABS: Hematocrit 21.2 % (36.0-46.0); Hemoglobin 7.1 g/dL (12.2-16.2)
[2018-11-09 05:00] VITALS: BP 121/61
[2018-11-09] MEDS: SODIUM CHLORIDE 0.9% 1,000 ML IV SCH ×2 (05:49→12:42)
[2018-11-09 06:36] LABS: Basophils # (auto) 0 uL; Basophils % (auto) 0.4 % (0.0-2.0); Eosinophils # (auto) 0.1 uL; Eosinophils % (auto) 1.6 % (0.0-7.0); Hematocrit 22.2 % (36.0-46.0); Hemoglobin 7.4 g/dL (12.2-16.2); Lymphocytes # (auto) 0.4 uL; Lymphocytes % (auto) 6.3 % (10.0-50.0); Mean Corpuscular Hemoglobin 29.5 pg (28.0-32.0); Mean Corpuscular Hgb Conc. 33.1 g/dL (32.0-36.0); Mean Corpuscular Volume 89.1 fL (80.0-100.0); Monocytes # (auto) 0.4 uL; Monocytes % (auto) 7.3 % (0.0-12.0); Neutrophils # (auto) 4.8 uL; Neutrophils % (auto) 84.4 % (37.0-80.0); Platelet Count (auto) 224 10^3/uL (140-450); Red Cell Distribution Width 17.2 % (11.8-14.3); White Blood Cell 5.7 10^3/uL (4.4-10.8)
[2018-11-09 06:43] LABS: BUN/Creatinine Ratio 29.6; Calcium 8.6 mg/dL (8.5-10.1); Potassium 5.2 mmol/L (3.5-5.1)
[2018-11-09] MEDS: LEVOTHYROXINE SODIUM 100 MCG TAB PO SCH (06:43)
--- NOTE | 2018-11-09 07:00 | NUR ---
Patient is alert and awake, no distress noted and patient denies pain. Patient states she is feeling better and stronger. Patient was given lactulose per patient request.
[2018-11-09] MEDS ORDERED: cloNIDine HCL 0.1 MG TAB PO PRN (08:45)
[2018-11-09 08:52] VITALS: BP 129/68
--- NOTE | 2018-11-09 09:22 | NUR ---
OPENING CARE ENDORSED BY ISIDRO DAY SHIFT NURSE AT THIS TIME. PATIENT ASLEEP IN BED, BED IN LOWEST POSITION, CALL LIGHT WITHIN REACH. NO DISTRESS NOTED AT THIS TIME. WILL F/U WITH MORNING ASSESSMENT.
[2018-11-09] MEDS: CHLORTHALIDONE 25 MG PO SCH ×2 (10:00→22:00)
[2018-11-09] MEDS: LISINOPRIL 10 MG TAB PO SCH (10:00)
[2018-11-09] MEDS ORDERED: SPIRONOLACTONE 25 MG TAB PO SCH (10:00)
[2018-11-09] MEDS: PANTOPRAZOLE 40 MG/10 ML VIAL IV SCH ×2 (11:53→22:17)
[2018-11-09] MEDS: amLODIPine BESYLATE 5 MG TAB PO SCH (11:53)
[2018-11-09] MEDS: METOPROLOL SUCCINATE XL 50 MG TAB PO SCH (11:54)
[2018-11-09 13:00] VITALS: BP 117/63
[2018-11-09 14:06] LABS: BUN/Creatinine Ratio 26.4; Calcium 8.6 mg/dL (8.5-10.1); Potassium 4.6 mmol/L (3.5-5.1)
[2018-11-09 17:00] VITALS: BP 111/59
[2018-11-09] MEDS: Ensure Enlive Strawberry 8oz Bottle PO SCH (18:00)
--- NOTE | 2018-11-09 19:20 | NUR ---
Opening Shift Note Report received from klaudia Lyles RN. Assumed care of patient, awake and alert. No S/S of distress/SOB or pain. Instructed on POC and to call for assist PRN, will continue to monitor for changes Q1hr and PRN. Bed placed in lowest position, call light within reach.
[2018-11-09 22:04] VITALS: BP 121/49
[2018-11-10] VITALS (9 sets, daily range): BP systolic 118–146; BP diastolic 42–78
[2018-11-10] MEDS: SODIUM CHLORIDE 0.9% 1,000 ML IV SCH ×2 (01:54→13:19)
[2018-11-10] MEDS: LEVOTHYROXINE SODIUM 100 MCG TAB PO SCH (06:29)
[2018-11-10 06:56] LABS: Basophils # (auto) 0 uL; Basophils % (auto) 0.4 % (0.0-2.0); Eosinophils # (auto) 0.1 uL; Hemoglobin 7.3 g/dL (12.2-16.2); Lymphocytes # (auto) 0.5 uL; Mean Corpuscular Volume 89.6 fL (80.0-100.0); Monocytes # (auto) 0.5 uL; Red Cell Distribution Width 17.4 % (11.8-14.3)
--- NOTE | 2018-11-10 07:00 | NUR ---
PATIENT CONTINUES ON IV FLUIDS NS AT 80ML/HOUR. PROVIDED A CUP OF HOT WATER FOR HER TEA THIS MORNING. PATIENT IS AWAKE AND ORIENTED, NO DISTRESS NOTED AND PATIENT DENIES PAIN.
[2018-11-10 07:01] LABS: Eosinophils % (auto) 1.3 % (0.0-7.0); Lymphocytes % (auto) 7.9 % (10.0-50.0); Mean Corpuscular Hemoglobin 29.8 pg (28.0-32.0); Mean Corpuscular Hgb Conc. 33.3 g/dL (32.0-36.0); Neutrophils % (auto) 82.4 % (37.0-80.0); Nucleated Red Blood Cells % 0.1 %; Platelet Count (auto) 224 10^3/uL (140-450); Red Blood Cells 2.45 10^6/uL (4.0-5.20); White Blood Cell 6.1 10^3/uL (4.4-10.8)
[2018-11-10 07:15] LABS: BUN/Creatinine Ratio 26.4; Calcium 8.3 mg/dL (8.5-10.1); Potassium 4.7 mmol/L (3.5-5.1)
--- NOTE | 2018-11-10 07:45 | NUR ---
opening patient, in bed awake, bed in lowest position , call light within reach. No distress noted current hgb is 7.3 will report to hospitalist
[2018-11-10] MEDS: Ensure Enlive Strawberry 8oz Bottle PO SCH (08:00)
[2018-11-10] MEDS: PANTOPRAZOLE 40 MG/10 ML VIAL IV SCH (09:52)
[2018-11-10] MEDS: METOPROLOL SUCCINATE XL 50 MG TAB PO SCH (09:52)
[2018-11-10] MEDS: amLODIPine BESYLATE 5 MG TAB PO SCH (09:52)
[2018-11-10] MEDS: LISINOPRIL 10 MG TAB PO SCH (09:53)
[2018-11-10] MEDS: CHLORTHALIDONE 25 MG PO SCH (09:53)
[2018-11-10] MEDS ORDERED: SODIUM FERR GLUC 62.5MG/5ML 125 MG in SODIUM CHL 0.9% 100 ML IV SCH (12:00)
--- NOTE | 2018-11-10 17:50 | NUR ---
closing Discharge instructions given as ordered. Encourage to follow up with PMD as instructed. All questions and concerns addressed. Patient verbalized understanding. Medication reconciliation form completed and copy given to patient. IV removed with catheter intact, pressure dressing applied. Telemetry unit returned to ICU. Patient taken to vehicle via wheelchair with all personal belongings, accompanied by staff and family member. No distress noted at time of departure.
== END 2018-11-10 17:50 | disposition home or self-care (01) | DRG 377 ==
LOC: ER 10:20 → TELE 11:46 → TELE-EAST 13:08
PROVIDERS: ADMIT Internal Medicine; ATTEND Internal Medicine
PROC: 30233N1 Transfusion of Nonautologous Red Blood Cells into Peripheral Vein, Percutaneous Approach (ICD-10-PCS; principal; 2018-11-08)
DX: K92.2 Gastrointestinal hemorrhage, unspecified (principal); E43 Unspecified severe protein-calorie malnutrition; C54.1 Malignant neoplasm of endometrium; D50.9 Iron deficiency anemia, unspecified; D63.1 Anemia in chronic kidney disease; E78.5 Hyperlipidemia, unspecified; E89.0 Postprocedural hypothyroidism; I12.9 Hypertensive chronic kidney disease with stage 1 through stage 4 chronic kidney disease, or unspecified chronic kidney disease; N18.3 Chronic kidney disease, stage 3 (moderate); K59.00 Constipation, unspecified; Z82.49 Family history of ischemic heart disease and other diseases of the circulatory system; Z83.3 Family history of diabetes mellitus; Z90.710 Acquired absence of both cervix and uterus; Z92.3 Personal history of irradiation; Z90.49 Acquired absence of other specified parts of digestive tract; Z80.3 Family history of malignant neoplasm of breast; Z80.41 Family history of malignant neoplasm of ovary; Z68.26 Body mass index [BMI] 26.0-26.9, adult
CPT/HCPCS: 36415; 80048; 80053; 81001; 82270; 85014; 85018; 85025; 85045; 86850; 86900; 86901; 86920; 94761; C9113; G0378

== ENCOUNTER → 2018-11-08 | Outpatient (CLI) | payer BC, MEDICARE ==
[2018-11-08 08:38] LABS: Basophils # (auto) 0 uL; Eosinophils # (auto) 0.1 uL; Lymphocytes # (auto) 0.4 uL; Monocytes # (auto) 0.5 uL; Neutrophils # (auto) 4.1 uL; Nucleated Red Blood Cells % 0.1 %; Red Cell Distribution Width 17.9 % (11.8-14.3); White Blood Cell 5.1 10^3/uL (4.4-10.8)
[2018-11-08 08:41] LABS: Basophils % (auto) 0.6 % (0.0-2.0); Eosinophils % (auto) 2.5 % (0.0-7.0); Hematocrit 18.2 % (36.0-46.0); Lymphocytes % (auto) 7.6 % (10.0-50.0); Mean Corpuscular Hgb Conc. 33.3 g/dL (32.0-36.0); Mean Corpuscular Volume 87.1 fL (80.0-100.0); Neutrophils % (auto) 80.3 % (37.0-80.0); Platelet Count (auto) 268 10^3/uL (140-450); Red Blood Cells 2.09 10^6/uL (4.0-5.20)
[2018-11-08 09:13] LABS: Hemoglobin 6.1 g/dL (12.2-16.2)
[2018-11-08 09:19] LABS: Albumin 2.9 g/dL (3.4-5.0); Calcium 9.2 mg/dL (8.5-10.1); Potassium 5.2 mmol/L (3.5-5.1)
[2018-11-08 09:23] LABS: BUN/Creatinine Ratio 32.7; Bilirubin, Total 0.3 mg/dL (0.2-1.0); Total Protein 6.2 g/dL (6.4-8.2)
== END | disposition home or self-care (01) ==
LOC: LAB 07:21
PROVIDERS: ATTEND Internal Medicine
DX: C54.1 Malignant neoplasm of endometrium (principal)
CPT/HCPCS: 36415; 80053; 83615; 85025

== ENCOUNTER → 2018-11-15 | Outpatient (CLI) | payer BC, MEDICARE ==
[2018-11-15 12:58] LABS: Basophils # (auto) 0 uL; Basophils % (auto) 0.4 % (0.0-2.0); Eosinophils # (auto) 0.1 uL; Eosinophils % (auto) 1.2 % (0.0-7.0); Hematocrit 27.5 % (36.0-46.0); Hemoglobin 9.2 g/dL (12.2-16.2); Lymphocytes # (auto) 0.3 uL; Lymphocytes % (auto) 5.4 % (10.0-50.0); Mean Corpuscular Hemoglobin 29.8 pg (28.0-32.0); Mean Corpuscular Hgb Conc. 33.4 g/dL (32.0-36.0); Mean Corpuscular Volume 89.4 fL (80.0-100.0); Monocytes # (auto) 0.3 uL; Monocytes % (auto) 5.2 % (0.0-12.0); Neutrophils # (auto) 4.5 uL; Neutrophils % (auto) 87.8 % (37.0-80.0); Platelet Count (auto) 214 10^3/uL (140-450); Red Blood Cells 3.08 10^6/uL (4.0-5.20); White Blood Cell 5.1 10^3/uL (4.4-10.8)
[2018-11-15 13:20] LABS: Albumin 2.8 g/dL (3.4-5.0); Calcium 8.4 mg/dL (8.5-10.1); Potassium 5.1 mmol/L (3.5-5.1)
[2018-11-15 13:23] LABS: BUN/Creatinine Ratio 29.3; Bilirubin, Total 0.3 mg/dL (0.2-1.0); Total Protein 6.3 g/dL (6.4-8.2)
== END | disposition home or self-care (01) ==
LOC: LAB 12:43
PROVIDERS: ATTEND Internal Medicine
DX: C54.1 Malignant neoplasm of endometrium (principal)
CPT/HCPCS: 36415; 80053; 85025

== ENCOUNTER → 2018-11-22 | Outpatient (CLI) | payer BC, MEDICARE ==
[2018-11-22 14:40] LABS: Basophils # (auto) 0 uL; Basophils % (auto) 0.5 % (0.0-2.0); Eosinophils # (auto) 0 uL; Eosinophils % (auto) 1.2 % (0.0-7.0); Hemoglobin 8.7 g/dL (12.2-16.2); Lymphocytes # (auto) 0.3 uL; Lymphocytes % (auto) 10.7 % (10.0-50.0); Mean Corpuscular Hemoglobin 29.9 pg (28.0-32.0); Mean Corpuscular Hgb Conc. 33.4 g/dL (32.0-36.0); Mean Corpuscular Volume 89.5 fL (80.0-100.0); Monocytes # (auto) 0.3 uL; Monocytes % (auto) 10.5 % (0.0-12.0); Neutrophils # (auto) 2.1 uL; Neutrophils % (auto) 77.1 % (37.0-80.0); Platelet Count (auto) 152 10^3/uL (140-450); Red Cell Distribution Width 17.6 % (11.8-14.3); White Blood Cell 2.7 10^3/uL (4.4-10.8)
== END | disposition home or self-care (01) ==
LOC: LAB 14:10
PROVIDERS: ATTEND Internal Medicine
DX: C54.1 Malignant neoplasm of endometrium (principal)
CPT/HCPCS: 36415; 85025

== ENCOUNTER → 2018-11-29 | Outpatient (CLI) | payer BC, MEDICARE ==
[2018-11-29 12:40] LABS: Basophils # (auto) 0 uL; Basophils % (auto) 0.3 % (0.0-2.0); Eosinophils # (auto) 0 uL; Eosinophils % (auto) 1.1 % (0.0-7.0); Hemoglobin 8.8 g/dL (12.2-16.2); Lymphocytes # (auto) 0.2 uL; Lymphocytes % (auto) 8.8 % (10.0-50.0); Mean Corpuscular Hemoglobin 30.7 pg (28.0-32.0); Mean Corpuscular Hgb Conc. 33.9 g/dL (32.0-36.0); Mean Corpuscular Volume 90.6 fL (80.0-100.0); Monocytes # (auto) 0.2 uL; Monocytes % (auto) 8.5 % (0.0-12.0); Neutrophils # (auto) 2.2 uL; Neutrophils % (auto) 81.3 % (37.0-80.0); Platelet Count (auto) 124 10^3/uL (140-450); Red Blood Cells 2.87 10^6/uL (4.0-5.20); Red Cell Distribution Width 18.6 % (11.8-14.3); White Blood Cell 2.7 10^3/uL (4.4-10.8)
[2018-11-29 13:03] LABS: Calcium 8.3 mg/dL (8.5-10.1); Potassium 4.6 mmol/L (3.5-5.1)
[2018-11-29 13:06] LABS: BUN/Creatinine Ratio 24.6; Bilirubin, Total 0.4 mg/dL (0.2-1.0); Total Protein 6.1 g/dL (6.4-8.2)
== END | disposition home or self-care (01) ==
LOC: LAB 11:17
PROVIDERS: ATTEND Internal Medicine
DX: C54.1 Malignant neoplasm of endometrium (principal)
CPT/HCPCS: 36415; 80053; 83615; 85025

== ENCOUNTER → 2018-12-06 | Outpatient (CLI) | payer BC, MEDICARE ==
[2018-12-06 14:08] LABS: Basophils # (auto) 0 uL; Eosinophils # (auto) 0 uL; Eosinophils % (auto) 0.7 % (0.0-7.0); Hematocrit 26.2 % (36.0-46.0); Lymphocytes # (auto) 0.2 uL; Monocytes # (auto) 0.2 uL; Neutrophils # (auto) 1.2 uL
[2018-12-06 14:10] LABS: Basophils % (auto) 0.3 % (0.0-2.0); Hemoglobin 8.8 g/dL (12.2-16.2); Lymphocytes % (auto) 10.4 % (10.0-50.0); Mean Corpuscular Hemoglobin 30.8 pg (28.0-32.0); Mean Corpuscular Hgb Conc. 33.6 g/dL (32.0-36.0); Mean Corpuscular Volume 91.7 fL (80.0-100.0); Monocytes % (auto) 11.1 % (0.0-12.0); Neutrophils % (auto) 77.5 % (37.0-80.0); Nucleated Red Blood Cells % 0.2 %; Platelet Count (auto) 84 10^3/uL (140-450); Red Blood Cells 2.86 10^6/uL (4.0-5.20); Red Cell Distribution Width 19.9 % (11.8-14.3)
[2018-12-06 14:12] LABS: White Blood Cell 1.6 10^3/uL (4.4-10.8)
[2018-12-06 15:53] LABS: Albumin 3.2 g/dL (3.4-5.0); Calcium 8.2 mg/dL (8.5-10.1); Potassium 5.2 mmol/L (3.5-5.1)
[2018-12-06 16:01] LABS: BUN/Creatinine Ratio 24.7; Bilirubin, Total 0.4 mg/dL (0.2-1.0); Total Protein 6.4 g/dL (6.4-8.2)
== END | disposition home or self-care (01) ==
LOC: LAB 13:49
PROVIDERS: ATTEND Internal Medicine
DX: C54.1 Malignant neoplasm of endometrium (principal)
CPT/HCPCS: 36415; 80053; 85025

== ENCOUNTER → 2018-12-10 | Outpatient (CLI) | payer BC, MEDICARE ==
[~2018-12-10] MED LIST changes: +PROM25TA21 PO
[2018-12-10 14:08] LABS: Hematocrit 24.8 % (36.0-46.0); Hemoglobin 8.3 g/dL (12.2-16.2); Mean Corpuscular Hgb Conc. 33.6 g/dL (32.0-36.0); Mean Corpuscular Volume 92.3 fL (80.0-100.0); Platelet Count (auto) 68 10^3/uL (140-450); Red Blood Cells 2.68 10^6/uL (4.0-5.20)
[2018-12-10 14:25] LABS: Albumin 2.9 g/dL (3.4-5.0); Calcium 7.8 mg/dL (8.5-10.1); Potassium 5.5 mmol/L (3.5-5.1)
[2018-12-10 14:27] LABS: BUN/Creatinine Ratio 27.7; Total Protein 6.3 g/dL (6.4-8.2)
[2018-12-10 14:29] LABS: Bilirubin, Total 0.4 mg/dL (0.2-1.0)
[2018-12-10 14:31] LABS: Red Cell Distribution Width 20.5 % (11.8-14.3); White Blood Cell 1.6 10^3/uL (4.4-10.8)
[2018-12-10 14:32] LABS: Band Neutrophils % (manual) 0; Basophils % (manual) 0 (0.0-2.0); Blast Cells 0; Eosinophils % (manual) 0 (0-7); Metamyelocytes % 0; Myelocytes % 0; Promyelocytes % 0; Reactive Lymphocytes 0
[2018-12-10 15:03] LABS: Lymphocytes % (manual) 10 (10.0-50.0); Monocytes % (manual) 18 (0-12)
== END | disposition home or self-care (01) ==
LOC: LAB 13:34
PROVIDERS: ATTEND Internal Medicine
DX: C54.1 Malignant neoplasm of endometrium (principal); E03.9 Hypothyroidism, unspecified; I12.9 Hypertensive chronic kidney disease with stage 1 through stage 4 chronic kidney disease, or unspecified chronic kidney disease; N18.3 Chronic kidney disease, stage 3 (moderate)
CPT/HCPCS: 36415; 80053; 85007; 85027

== ENCOUNTER → 2018-12-13 | Outpatient (CLI) | payer BC, MEDICARE ==
[~2018-12-13] MED LIST changes: -PROM25TA21 PO
[2018-12-13 11:46] LABS: Basophils # (auto) 0 uL; Eosinophils # (auto) 0 uL; Hemoglobin 8.9 g/dL (12.2-16.2); Lymphocytes # (auto) 0.1 uL; Monocytes # (auto) 0.2 uL
[2018-12-13 11:48] LABS: Eosinophils % (auto) 0.6 % (0.0-7.0); Hematocrit 26.7 % (36.0-46.0); Lymphocytes % (auto) 7.6 % (10.0-50.0); Mean Corpuscular Hemoglobin 30.7 pg (28.0-32.0); Mean Corpuscular Hgb Conc. 33.3 g/dL (32.0-36.0); Mean Corpuscular Volume 92.1 fL (80.0-100.0); Monocytes % (auto) 16.7 % (0.0-12.0); Neutrophils % (auto) 74.1 % (37.0-80.0); Nucleated Red Blood Cells % 0.2 %; Platelet Count (auto) 81 10^3/uL (140-450)
[2018-12-13 11:51] LABS: White Blood Cell 1.4 10^3/uL (4.4-10.8)
[2018-12-13 11:52] LABS: Red Cell Distribution Width 21.5 % (11.8-14.3)
[2018-12-13 12:19] LABS: BUN/Creatinine Ratio 23.5; Calcium 8.4 mg/dL (8.5-10.1); Potassium 4.7 mmol/L (3.5-5.1)
== END | disposition home or self-care (01) ==
LOC: LAB 11:32
PROVIDERS: ATTEND Internal Medicine
DX: D70.1 Agranulocytosis secondary to cancer chemotherapy (principal)
CPT/HCPCS: 36415; 80048; 83615; 85025

== ENCOUNTER → 2018-12-18 | Outpatient (CLI) | payer BC, MEDICARE ==
[2018-12-18 11:29] LABS: Hemoglobin 8.3 g/dL (12.2-16.2)
[2018-12-18 11:31] LABS: Mean Corpuscular Hgb Conc. 33.3 g/dL (32.0-36.0); Mean Corpuscular Volume 93.1 fL (80.0-100.0); Platelet Count (auto) 122 10^3/uL (140-450); Red Blood Cells 2.68 10^6/uL (4.0-5.20)
[2018-12-18 11:40] LABS: Basophils % (manual) 0 (0.0-2.0); Blast Cells 0; Metamyelocytes % 0; Myelocytes % 0; Promyelocytes % 0; Reactive Lymphocytes 0; Red Cell Distribution Width 22.3 % (11.8-14.3)
[2018-12-18 11:42] LABS: White Blood Cell 1.6 10^3/uL (4.4-10.8)
[2018-12-18 12:11] LABS: Band Neutrophils % (manual) 1; Eosinophils % (manual) 1 (0-7); Lymphocytes % (manual) 18 (10.0-50.0); Monocytes % (manual) 27 (0-12)
== END | disposition home or self-care (01) ==
LOC: LAB 11:18
PROVIDERS: ATTEND Internal Medicine
DX: C54.1 Malignant neoplasm of endometrium (principal)
CPT/HCPCS: 36415; 85007; 85027

== ENCOUNTER → 2018-12-30 | Outpatient (CLI) | payer BC, MEDICARE ==
[2018-12-30 14:11] LABS: Basophils # (auto) 0 uL; Basophils % (auto) 0.2 % (0.0-2.0); Eosinophils # (auto) 0 uL; Eosinophils % (auto) 0.1 % (0.0-7.0); Lymphocytes # (auto) 0.2 uL
[2018-12-30 14:13] LABS: Hematocrit 23.5 % (36.0-46.0); Lymphocytes % (auto) 1.7 % (10.0-50.0); Mean Corpuscular Hemoglobin 31.7 pg (28.0-32.0); Mean Corpuscular Hgb Conc. 34.1 g/dL (32.0-36.0); Mean Corpuscular Volume 93.1 fL (80.0-100.0); Monocytes # (auto) 0.9 uL; Monocytes % (auto) 8.3 % (0.0-12.0); Neutrophils # (auto) 9.3 uL; Neutrophils % (auto) 89.7 % (37.0-80.0); Platelet Count (auto) 204 10^3/uL (140-450); Red Blood Cells 2.52 10^6/uL (4.0-5.20); White Blood Cell 10.3 10^3/uL (4.4-10.8)
[2018-12-30 14:29] LABS: Red Cell Distribution Width 22.1 % (11.8-14.3)
[2018-12-30 15:13] LABS: % Iron Saturation 5.7 % (15-50)
== END | disposition home or self-care (01) ==
LOC: LAB 13:33
PROVIDERS: ATTEND Internal Medicine
DX: C54.1 Malignant neoplasm of endometrium (principal)
CPT/HCPCS: 36415; 82728; 83540; 83550; 85025

== ENCOUNTER → 2019-01-06 | Outpatient (CLI) | payer BC, MEDICARE ==
[2019-01-06 09:15] LABS: Basophils # (auto) 0 uL; Hemoglobin 7.5 g/dL (12.2-16.2); Monocytes # (auto) 0.8 uL; Red Blood Cells 2.41 10^6/uL (4.0-5.20)
[2019-01-06 09:17] LABS: Basophils % (auto) 0.5 % (0.0-2.0); Eosinophils # (auto) 0 uL; Eosinophils % (auto) 0.8 % (0.0-7.0); Hematocrit 22.5 % (36.0-46.0); Lymphocytes # (auto) 0.1 uL; Lymphocytes % (auto) 2.7 % (10.0-50.0); Mean Corpuscular Hgb Conc. 33.2 g/dL (32.0-36.0); Mean Corpuscular Volume 93.4 fL (80.0-100.0); Monocytes % (auto) 14.7 % (0.0-12.0); Neutrophils # (auto) 4.2 uL; Neutrophils % (auto) 81.3 % (37.0-80.0); Platelet Count (auto) 231 10^3/uL (140-450); White Blood Cell 5.1 10^3/uL (4.4-10.8)
[2019-01-06 09:30] LABS: Albumin 2.4 g/dL (3.4-5.0); Calcium 8.9 mg/dL (8.5-10.1); Magnesium 1.4 mg/dL (1.6-2.6); Potassium 4.4 mmol/L (3.5-5.1)
[2019-01-06 09:33] LABS: Bilirubin, Total 0.3 mg/dL (0.2-1.0); Total Protein 6.4 g/dL (6.4-8.2)
[2019-01-06 09:42] LABS: Red Cell Distribution Width 21.1 % (11.8-14.3)
== END | disposition home or self-care (01) ==
LOC: LAB 09:02
PROVIDERS: ATTEND Internal Medicine
DX: C54.1 Malignant neoplasm of endometrium (principal); I12.9 Hypertensive chronic kidney disease with stage 1 through stage 4 chronic kidney disease, or unspecified chronic kidney disease; N18.3 Chronic kidney disease, stage 3 (moderate)
CPT/HCPCS: 36415; 80053; 83615; 83735; 85025

== ENCOUNTER 2019-01-09 19:30 | Emergency (ER) | payer BC, MEDICARE ==
[~2019-01-09] VITALS: Ht 170.2 cm; Wt 73.0 kg
[2019-01-09] MEDS ORDERED: SODIUM CHLORIDE 0.9% 1,000 ML IV ONE (20:15)
[2019-01-09] MEDS ORDERED: ONDANSETRON HCL 4 MG/2 ML VIAL IV ONE (20:15)
[2019-01-09 20:29] LABS: Basophils # (auto) 0 uL; Basophils % (auto) 0.1 % (0.0-2.0); Eosinophils # (auto) 0.1 uL
[2019-01-09 20:31] LABS: Eosinophils % (auto) 0.7 % (0.0-7.0); Hematocrit 23.7 % (36.0-46.0); Hemoglobin 7.8 g/dL (12.2-16.2); Lymphocytes # (auto) 0.1 uL; Lymphocytes % (auto) 1.2 % (10.0-50.0); Mean Corpuscular Hemoglobin 30.6 pg (28.0-32.0); Mean Corpuscular Volume 92.6 fL (80.0-100.0); Monocytes # (auto) 1.4 uL; Monocytes % (auto) 12.3 % (0.0-12.0); Neutrophils # (auto) 10.1 uL; Neutrophils % (auto) 85.7 % (37.0-80.0); Platelet Count (auto) 279 10^3/uL (140-450); Red Blood Cells 2.56 10^6/uL (4.0-5.20); White Blood Cell 11.8 10^3/uL (4.4-10.8)
[2019-01-09 20:39] LABS: Red Cell Distribution Width 20.3 % (11.8-14.3)
[2019-01-09 20:43] LABS: INR 0.94 (0.9-1.15); Partial Thromboplastin Time 26.9 sec (23.78-33.04); Prothrombin Time 10.1 sec (9.27-12.13)
[2019-01-09 20:47] LABS: Albumin 2.5 g/dL (3.4-5.0); BUN/Creatinine Ratio 29.8; Calcium 8.8 mg/dL (8.5-10.1); Magnesium 1.2 mg/dL (1.6-2.6); Potassium 4.1 mmol/L (3.5-5.1)
[2019-01-09 20:50] LABS: Bilirubin, Total 0.4 mg/dL (0.2-1.0); Total Protein 6.7 g/dL (6.4-8.2)
[2019-01-10 03:45] VITALS: BP 138/59
[2019-01-10 04:47] LABS: Urine Amorphous Crystal FEW /hpf (None Seen); Urine Bacteria FEW /hpf (None Seen); Urine Blood Negative /uL (Negative); Urine Specific Gravity 1.008 (1.001-1.035); Urine WBC 1 /hpf (0 - 5)
== END 2019-01-10 04:54 | disposition home or self-care (01) ==
LOC: EEVIPCON 19:33 → ER 19:33
DX: G43.A1 Cyclical vomiting, in migraine, intractable (principal); E87.1 Hypo-osmolality and hyponatremia; E86.0 Dehydration; I11.0 Hypertensive heart disease with heart failure; I50.9 Heart failure, unspecified; N28.9 Disorder of kidney and ureter, unspecified; E11.65 Type 2 diabetes mellitus with hyperglycemia; E78.5 Hyperlipidemia, unspecified; Z90.49 Acquired absence of other specified parts of digestive tract; Z90.710 Acquired absence of both cervix and uterus
CPT/HCPCS: 36415; 71045; 74176; 80053; 81001; 83605; 83690; 83735; 83880; 84443; 84484; 85025; 85379; 85610; 85730; 93005; 96361; 96374; 99284; J2405; J7030

== ENCOUNTER 2019-01-18 11:04 | Inpatient (IN) | payer BC, MEDICARE ==
[2019-01-18] VITALS (7 sets, daily range): BP systolic 105–119; BP diastolic 42–70
[~2019-01-18] VITALS: Ht 170.2 cm; Wt 81.6 kg
[2019-01-18] MEDS ORDERED: SODIUM CHLORIDE 0.9% 1,000 ML IVB ONE (11:27)
[2019-01-18] MEDS ORDERED: SODIUM CHLORIDE 0.9% 1,000 ML IV ONE (11:27)
[2019-01-18 12:31] LABS: Basophils # (auto) 0 uL; Basophils % (auto) 0.3 % (0.0-2.0); Eosinophils # (auto) 0 uL; Hemoglobin 7.4 g/dL (12.2-16.2); Monocytes # (auto) 0.9 uL; White Blood Cell 9.9 10^3/uL (4.4-10.8)
[2019-01-18 12:34] LABS: Eosinophils % (auto) 0.2 % (0.0-7.0); Hematocrit 21.7 % (36.0-46.0); Lymphocytes # (auto) 0.2 uL; Lymphocytes % (auto) 1.5 % (10.0-50.0); Mean Corpuscular Hemoglobin 31.7 pg (28.0-32.0); Mean Corpuscular Hgb Conc. 34.2 g/dL (32.0-36.0); Mean Corpuscular Volume 92.7 fL (80.0-100.0); Monocytes % (auto) 8.8 % (0.0-12.0); Neutrophils # (auto) 8.8 uL; Neutrophils % (auto) 89.2 % (37.0-80.0); Platelet Count (auto) 135 10^3/uL (140-450); Red Blood Cells 2.35 10^6/uL (4.0-5.20)
[2019-01-18 12:38] LABS: Red Cell Distribution Width 20.2 % (11.8-14.3)
[2019-01-18 12:51] LABS: Chloride 93 mmol/L (98-107); Potassium 4.4 mmol/L (3.5-5.1); Sodium 127 mmol/L (136-145)
[2019-01-18 12:52] LABS: INR 0.96 (0.9-1.15); Partial Thromboplastin Time 23.4 sec (23.78-33.04); Prothrombin Time 10.3 sec (9.27-12.13)
[2019-01-18 12:56] LABS: Alanine Aminotransferase 11 U/L (13-56); Albumin 2.4 g/dL (3.4-5.0); Alkaline Phosphatase 73 U/L (45-117); Anion Gap 9 (5-15); Aspartate Aminotransferase 7 U/L (15-37); BUN/Creatinine Ratio 24.6; Bilirubin, Total 0.4 mg/dL (0.2-1.0); Blood Urea Nitrogen 50 mg/dL (7-18); Carbon Dioxide 25 mmol/L (21-32); GFR African American 32 mL/min; GFR Non-African American 26 mL/min; Glucose 121 mg/dL (74-106); Total Protein 6.2 g/dL (6.4-8.2)
[2019-01-18] MEDS ORDERED: ONDANSETRON HCL 4 MG/2 ML VIAL ONE (13:58)
[2019-01-18 14:38] LABS: Urine Bacteria NONE SEEN /hpf (None Seen); Urine Blood Negative /uL (Negative); Urine Specific Gravity 1.007 (1.001-1.035); Urine WBC 2 /hpf (0 - 5)
[2019-01-18] MEDS ORDERED: MAGNESIUM SULFATE 1GM/100ML 100 ML IV SCH (14:45)
[2019-01-18] MEDS ORDERED: ONDANSETRON HCL 4 MG/2 ML VIAL IV ONE (14:45)
[2019-01-18] MEDS ORDERED: NITROGLYCERIN 0.4 MG SL TAB SL PRN (15:45)
[2019-01-18] MEDS ORDERED: HYDROcodone-ACET 5/325MG TAB PO PRN (15:45)
[2019-01-18] MEDS ORDERED: MORPHINE SULF INJ 2 MG/ML SYRINGE 1ML IV PRN ×2 (15:45)
[2019-01-18] MEDS ORDERED: ONDANSETRON HCL 4 MG/2 ML VIAL IV PRN (15:45)
[2019-01-18] MEDS: MULTIPLE VITAMIN 10 ML, MAGNESIUM SULF SDV 50% 8 MEQ in D5W/SOD CHL 0.45% 1,000 ML IV SCH ×2 (17:10→21:17)
--- NOTE | 2019-01-18 17:21 | NUR ---
Med/Surg admit from ER [facility] MARINELLI admitted to Telemetry unit after SBAR received. Patient oriented to Vanessa coates RN, unit, room, bed, and unit policies regarding patient care and visiting hours. Patient weighed by bed scale and encouraged to call if they need something. All questions and concerns addressed, patient verbalized understanding. Instructed patient on POC, fall precautions and to call for assistance as needed. patient verbalized understanding. Fall precautions in place, call light within reach.
[2019-01-18] MEDS: MAGNESIUM SULFATE 1GM/100ML 100 ML IV SCH ×3 (17:30→19:49)
--- NOTE | 2019-01-18 18:00 | NUR ---
IV started 20G IV started to the RWR with clean technique by Jaswant, scrap charger. IV secured. IV education provided to the patient. Patient verbalized understanding. Bed in low position, call light within reach.
--- NOTE | 2019-01-18 18:33 | NUR ---
Blood transfusion initiated per MD's order Patient educated on s/s of blood transfusion reaction and to notify staff immediately if patient experiences any of the s/s. Patient verbalized understanding. Will continue to monitor.
--- NOTE | 2019-01-18 18:45 | NUR ---
RE: Blood transfusion Blood transfusion continuing to be administered per MD's orders. Patient denies s/s of blood transfusion reaction at this time. Educated patient on s/s of blood transfusion reaction and to notify staff immediately with any change of status. Patient verbalized understanding. Call light within reach. Will continue to monitor.
[2019-01-18] MEDS ORDERED: CHLO25TA22 PO (19:05)
--- NOTE | 2019-01-18 19:30 | NUR ---
Care endorsed to MARLENA Gould.
--- NOTE | 2019-01-18 19:35 | NUR ---
Opening Shift Note Pt is resting in bed with eyes open and PRBC's infusing with no adverse reactions noted. POC discussed with Pt and pt verbalizes understanding. Bed is low, wheels are locked, and call light is with in reach.
--- NOTE | 2019-01-18 19:38 | NUR ---
RE: Blood transfusion Blood transfusion continues to be administered per MD's orders. Patient tolerating well with no s/s of blood transfusion reaction. Instructed patient to notify staff immediately with any change in status. Patient verbalized understanding. Blood transfusion endorsed to MARLENA Gould.
--- NOTE | 2019-01-18 20:25 | NUR ---
Transfusion is complete. No adverse reactions noted.
[2019-01-18] MEDS ORDERED: MVI in SODIUM CHLORIDE 0.9% 1,010 ML ONE (20:47)
[2019-01-18] MEDS: PROMETHAZINE HCL 25 MG/ML 1ML IV PRN (21:17)
[2019-01-19] VITALS (12 sets, daily range): BP systolic 103–133; BP diastolic 34–60
[2019-01-19 05:59] LABS: Basophils # (auto) 0 uL; Basophils % (auto) 0.2 % (0.0-2.0); Eosinophils # (auto) 0 uL; Eosinophils % (auto) 0.3 % (0.0-7.0); Hematocrit 22.3 % (36.0-46.0); Hemoglobin 7.6 g/dL (12.2-16.2); Lymphocytes # (auto) 0.1 uL; Lymphocytes % (auto) 1.7 % (10.0-50.0); Mean Corpuscular Hemoglobin 31.2 pg (28.0-32.0); Mean Corpuscular Hgb Conc. 34.1 g/dL (32.0-36.0); Mean Corpuscular Volume 91.5 fL (80.0-100.0); Monocytes # (auto) 0.6 uL; Monocytes % (auto) 10.2 % (0.0-12.0); Neutrophils # (auto) 5.5 uL; Neutrophils % (auto) 87.6 % (37.0-80.0); Nucleated Red Blood Cells % 0.1 %; Platelet Count (auto) 99 10^3/uL (140-450); Red Blood Cells 2.43 10^6/uL (4.0-5.20); Red Cell Distribution Width 19.8 % (11.8-14.3); White Blood Cell 6.3 10^3/uL (4.4-10.8)
[2019-01-19] MEDS: LEVOTHYROXINE SODIUM 100 MCG TAB PO SCH (07:04)
--- NOTE | 2019-01-19 08:00 | NUR ---
Morning note patient resting in bed with even and unlabored respirations, no distress noted. Instructed patient on POC, fall precautions, and to call for assistance as needed. Patient verbalized understanding. Fall precautions in place, call light within reach. Will continue to monitor q1hr & PRN.
[2019-01-19] MEDS: PANTOPRAZOLE 40 MG/10 ML VIAL IV SCH (08:37)
[2019-01-19] MEDS: METOPROLOL SUCCINATE XL 50 MG TAB PO SCH (08:38)
[2019-01-19] MEDS: amLODIPine BESYLATE 5 MG TAB PO SCH (08:38)
[2019-01-19] MEDS ORDERED: ENOXAPARIN SOD 30 MG/0.3 ML SYRINGE SC SCH (10:00)
--- NOTE | 2019-01-19 11:59 | NUR ---
was at bedside - Dr. Abdon Stewart
--- NOTE | 2019-01-19 12:09 | NUR ---
Medication not available, called pharmacy Medication to be delivered to the unit.
--- NOTE | 2019-01-19 12:40 | NUR ---
DNR code status form signed and placed in the chart Dr. Abdon Stewart spoke with the patient regarding code status with this RN at bedside.
--- NOTE | 2019-01-19 18:45 | NUR ---
Blood transfusion ended patient denies any s/s of blood transfusion reaction at this time. Instructed patient to notify staff immediately with any change in status. Patient verbalized understanding. Call light within reach.
--- NOTE | 2019-01-19 18:51 | NUR ---
IV discontinued IV to the RAC removed with clean technique, catheter intact. Dressing applied. Patient tolerated well.
--- NOTE | 2019-01-19 18:52 | NUR ---
End of shift patient resting in bed with even and unlabored respirations, no distress noted. Patient denies s/s of blood transfusion reaction at this time. Fall precautions in place, call light within reach.
--- NOTE | 2019-01-19 19:17 | NUR ---
Care endorsed to MARLENA De.
--- NOTE | 2019-01-19 19:34 | NUR ---
Opening Shift Note Assumed care of patient, awake and alert x 4. No S/S of distress/SOB or pain. Bed is in lowest position and locked. Call light within reach. Board updated. Instructed on POC and to call for assist PRN, will continue to monitor for changes Q1hr and PRN.
--- NOTE | 2019-01-19 21:32 | NUR ---
IV infiltrated and removed with catheter intact. Site covered with gauze and wrapped in Coban. 20 gauge IV catheter inserted into the left hand after 1 attempt using clean technique. IV secured and covered with tegaderm. Patient tolerated well.
[2019-01-19] MEDS: SODIUM CHLORIDE 0.9% 1,000 ML IV SCH (22:40)
[2019-01-20] MEDS: PROMETHAZINE HCL 25 MG/ML 1ML IV PRN ×2 (00:58→13:49)
[2019-01-20 04:58] VITALS: BP 134/57
[2019-01-20] MEDS: ACETAMINOPHEN 500 MG TAB PO PRN ×2 (05:34→13:50)
[2019-01-20 06:18] LABS: Basophils # (auto) 0 uL; Basophils % (auto) 0.2 % (0.0-2.0); Eosinophils # (auto) 0 uL; Eosinophils % (auto) 0.3 % (0.0-7.0); Hematocrit 27.4 % (36.0-46.0); Hemoglobin 9.5 g/dL (12.2-16.2); Lymphocytes # (auto) 0.1 uL; Lymphocytes % (auto) 2.1 % (10.0-50.0); Mean Corpuscular Hemoglobin 31.4 pg (28.0-32.0); Mean Corpuscular Hgb Conc. 34.5 g/dL (32.0-36.0); Monocytes # (auto) 0.7 uL; Monocytes % (auto) 10.3 % (0.0-12.0); Neutrophils # (auto) 5.9 uL; Neutrophils % (auto) 87.1 % (37.0-80.0); Platelet Count (auto) 100 10^3/uL (140-450); Red Blood Cells 3.01 10^6/uL (4.0-5.20); Red Cell Distribution Width 17.8 % (11.8-14.3); White Blood Cell 6.8 10^3/uL (4.4-10.8)
[2019-01-20] MEDS: SODIUM CHLORIDE 0.9% 1,000 ML IV SCH (06:19)
[2019-01-20] MEDS: LEVOTHYROXINE SODIUM 100 MCG TAB PO SCH (06:19)
[2019-01-20 06:44] LABS: Albumin 2.3 g/dL (3.4-5.0); BUN/Creatinine Ratio 21.3; Calcium 8.3 mg/dL (8.5-10.1); Potassium 4.6 mmol/L (3.5-5.1)
[2019-01-20 06:47] LABS: Bilirubin, Total 0.6 mg/dL (0.2-1.0); Total Protein 6.1 g/dL (6.4-8.2)
--- NOTE | 2019-01-20 08:08 | NUR ---
at bedside - Dr. Love
[2019-01-20 09:00] VITALS: BP 129/66
[2019-01-20] MEDS: PANTOPRAZOLE 40 MG/10 ML VIAL IV SCH (09:11)
[2019-01-20] MEDS: METOPROLOL SUCCINATE XL 50 MG TAB PO SCH (09:11)
[2019-01-20] MEDS: amLODIPine BESYLATE 5 MG TAB PO SCH (09:11)
--- NOTE | 2019-01-20 11:27 | NUR ---
MD was at bedside - Dr. Abdon Stewart Patient clear for discharge after 1400 per MD.
[2019-01-20] MEDS ORDERED: MULTIPLE VITAMIN 10 ML, MAGNESIUM SULF SDV 50% 8 MEQ in D5W/SOD CHL 0.45% 1,000 ML IV SCH (12:00)
[2019-01-20] MEDS ORDERED: PROM25TA21 PO (12:52)
[2019-01-20 13:00] VITALS: BP 127/59
--- NOTE | 2019-01-20 14:58 | NUR ---
Discharge Discharge education and paperwork provided to patient per MD's orders. Patient verbalized understanding. IV removed with clean technique, catheter intact. Dressing applied. Patient tolerated well. Patient is medical/surgical patient, no telemonitor to remove. Instructed patient to collect personal belongings and notify staff when ready to depart from unit. Patient verbalized understanding. No distress noted.
--- NOTE | 2019-01-20 16:17 | NUR ---
Patient departed from unit patient refused wheelchair. Patient ambulated with steady gait to private vehicle. No distress noted.
== END 2019-01-20 16:14 | disposition home or self-care (01) | DRG 391 ==
LOC: ER 11:04 → OVERFLOW 15:48 → EAST 17:24
PROVIDERS: ADMIT Nurse Practitioner Acute Care; ATTEND Family Medicine
PROC: 30233N1 Transfusion of Nonautologous Red Blood Cells into Peripheral Vein, Percutaneous Approach (ICD-10-PCS; principal; 2019-01-18)
DX: R11.2 Nausea with vomiting, unspecified (principal); E43 Unspecified severe protein-calorie malnutrition; C85.90 Non-Hodgkin lymphoma, unspecified, unspecified site; D61.818 Other pancytopenia; E87.1 Hypo-osmolality and hyponatremia; I13.0 Hypertensive heart and chronic kidney disease with heart failure and stage 1 through stage 4 chronic kidney disease, or unspecified chronic kidney disease; I50.22 Chronic systolic (congestive) heart failure; N18.4 Chronic kidney disease, stage 4 (severe); E78.5 Hyperlipidemia, unspecified; E83.42 Hypomagnesemia; E86.0 Dehydration; E89.0 Postprocedural hypothyroidism; I25.10 Atherosclerotic heart disease of native coronary artery without angina pectoris; Z66 Do not resuscitate; T45.1X5A Adverse effect of antineoplastic and immunosuppressive drugs, initial encounter; Y92.89 Other specified places as the place of occurrence of the external cause; Z80.3 Family history of malignant neoplasm of breast; Z80.41 Family history of malignant neoplasm of ovary; Z82.49 Family history of ischemic heart disease and other diseases of the circulatory system; Z83.3 Family history of diabetes mellitus; Z86.011 Personal history of benign neoplasm of the brain; Z90.710 Acquired absence of both cervix and uterus; Z90.49 Acquired absence of other specified parts of digestive tract; Z79.899 Other long term (current) drug therapy; Z85.42 Personal history of malignant neoplasm of other parts of uterus; Z68.28 Body mass index [BMI] 28.0-28.9, adult
CPT/HCPCS: 36415; 71046; 80053; 81001; 83735; 83880; 84443; 84484; 85025; 85379; 85610; 85730; 86850; 86900; 86901; 86920; 93005; 94761; 96361; 96374; C9113; G0378; J2405

== ENCOUNTER 2019-01-22 03:25 | Emergency (ER) | payer BC, MEDICARE ==
[~2019-01-22] VITALS: Ht 170.2 cm; Wt 71.2 kg
[~2019-01-22 03:25] MED LIST changes: +PROM25TA21 PO; -SPIR25TA8 PO
[2019-01-22] MEDS ORDERED: HYDROmorphone HCL 2 MG/ML VL ONE (03:48)
[2019-01-22] MEDS ORDERED: PROMETHAZINE HCL 25 MG/ML 1ML ONE (03:49)
[2019-01-22 03:59] LABS: Basophils # (auto) 0 uL; Basophils % (auto) 0.2 % (0.0-2.0); Eosinophils # (auto) 0 uL; Eosinophils % (auto) 0.4 % (0.0-7.0); Hematocrit 28.9 % (36.0-46.0); Lymphocytes # (auto) 0.2 uL; Lymphocytes % (auto) 2.7 % (10.0-50.0); Mean Corpuscular Hemoglobin 31.2 pg (28.0-32.0); Mean Corpuscular Hgb Conc. 34.7 g/dL (32.0-36.0); Monocytes # (auto) 0.7 uL; Monocytes % (auto) 9.9 % (0.0-12.0); Neutrophils # (auto) 6.2 uL; Neutrophils % (auto) 86.8 % (37.0-80.0); Platelet Count (auto) 117 10^3/uL (140-450); Red Blood Cells 3.21 10^6/uL (4.0-5.20); White Blood Cell 7.1 10^3/uL (4.4-10.8)
[2019-01-22] MEDS ORDERED: HYDROmorphone HCL 2 MG/ML VL IV ONE (04:00)
[2019-01-22] MEDS ORDERED: PROMETHAZINE HCL 25 MG/ML 1ML IV ONE (04:00)
[2019-01-22] MEDS ORDERED: SODIUM CHLORIDE 0.9% 1,000 ML IV ONE ×2 (04:00→06:29)
[2019-01-22 04:47] LABS: Albumin 2.7 g/dL (3.4-5.0); Calcium 8.8 mg/dL (8.5-10.1); Potassium 4.2 mmol/L (3.5-5.1)
[2019-01-22 04:50] LABS: BUN/Creatinine Ratio 21.8; Bilirubin, Total 0.5 mg/dL (0.2-1.0); Total Protein 6.8 g/dL (6.4-8.2)
[2019-01-22] MEDS ORDERED: SODIUM CHLORIDE 0.9% 1,000 ML IVB ONE (07:49)
[2019-01-22] MEDS ORDERED: PROCHLORPERAZINE EDISYLATE 5 MG/ML 2ML VIAL IV ONE (08:00)
[2019-01-22 12:54] LABS: Urine Bacteria FEW /hpf (None Seen); Urine Blood Negative /uL (Negative); Urine Specific Gravity 1.006 (1.001-1.035); Urine WBC 2 /hpf (0 - 5)
[2019-01-22] MEDS: MAGNESIUM SULFATE 1GM/100ML 100 ML IV SCH ×3 (13:23→15:27)
[2019-01-22 15:42] VITALS: BP 147/62
== END 2019-01-22 16:41 | disposition home or self-care (01) ==
LOC: ER 03:26 → EEVIPCON 03:26 → ER 16:41
DX: C85.93 Non-Hodgkin lymphoma, unspecified, intra-abdominal lymph nodes (principal); R11.2 Nausea with vomiting, unspecified; D69.6 Thrombocytopenia, unspecified; E83.42 Hypomagnesemia; D64.9 Anemia, unspecified; E46 Unspecified protein-calorie malnutrition; I12.9 Hypertensive chronic kidney disease with stage 1 through stage 4 chronic kidney disease, or unspecified chronic kidney disease; N18.3 Chronic kidney disease, stage 3 (moderate); E78.5 Hyperlipidemia, unspecified; Z90.49 Acquired absence of other specified parts of digestive tract; Z90.89 Acquired absence of other organs; Z90.710 Acquired absence of both cervix and uterus
CPT/HCPCS: 36415; 80053; 81001; 83690; 83735; 84443; 85025; 96361; 96365; 96366; 96375; 99283; J0780; J1170; J2550; J3475; J7030